=== PATIENT | male | born 1955 | race Caucasian/White ===

== ENCOUNTER 2019-12-15 11:23 | Outpatient (CLI) | payer MEDICARE, SELFPAY ==
--- NOTE | ~2019-12-15 | US_ITS ---
EXAMINATION: US carotid duplex BI DATE: 12/15/2019 13:58 INDICATION: Carotid bruit. Hypertension. TECHNIQUE: Grayscale, color Doppler, and pulsed Doppler images of the cervical carotid arteries were obtained. The degree of vessel stenosis is placed in one of the following categories: normal, <50%, 5 0-69%, >=70% but less than near-occlusion, near-occlusion, or total occlusion. Note that percent sten osis relative to normal distal artery lumen diameter is indirectly measured from velocity measurement s as described by Rafael, et al. Radiology 2003; 229:340-346. COMPARISON: None. FINDINGS: RIGHT: The right common carotid artery (CCA) peak systolic velocity (PSV) is 132 cm/s. The right internal ca rotid artery (ICA) PSV is 123 cm/s. The right ICA end-diastolic velocity (EDV) is 29 cm/s. The right ICA/CCA PSV ratio is 0.9. Grayscale and color Doppler images yield an estimate of <50% diameter reduc tion from plaque in the ICA. The external carotid artery (ECA) PSV is 51 cm/s. There is antegrade kamilah w in the right vertebral artery. LEFT: The left CCA PSV is 127 cm/s. The left ICA PSV is 112 cm/s. The left ICA EDV is 10 cm/s. The left ICA /CCA PSV ratio is 0.9. Grayscale and color Doppler images yield an estimate of <50% diameter reductio n from plaque in the ICA. The ECA PSV is 104 cm/s. There is antegrade flow in the left vertebral jacinto ry. IMPRESSION: 1. <50% stenosis in the right internal carotid artery. 2. <50% stenosis in the left internal carotid artery. Reviewed, dictated and finalized at location A.
--- NOTE | 2019-12-15 11:50 | ECG_ITS ---
Measurements Intervals [place] Rate: 62 P: 63 NM: 192 QRS: 38 QRSD: 92 T: 52 QT: 389 QTc: 395 Interpretive Statements SINUS RHYTHM NORMAL ECG Electronically Signed On 12-15-2019 12:07:46 CDT by Matheus Castro D.O.
--- NOTE | 2019-12-15 11:55 | ECHO_ITS ---
Patient Info Name: Jason Krishnamurthy Age: 63 years : 1955 Gender: Male Ht: 78 in Wt: 297 lbs BSA: 2.76 m2 HR: 65 bpm BP: 151 / 78 mmHg Heart Rhythm: Sinus Rhythm Technical Quality: Fair Exam Date: 12/15/2019 12:26 PM Exam Location: [facility] Patient Status: Outpatient Admit Date: 12/15/2019 Staff Ordering Physician: Jo Kinney MD Diesel Maintenance Electrician: Katerina Duncan RDCS Attending Provider: Jo Kinney MD Referring Physician: Nirmal WADSWORTH; Exam Type: CA echo dop color flow w con Study Info Indications I10 - Essential (primary) hypertension Complete two-dimensional, color flow and Doppler transthoracic echocardiogram is performed with contrast to opacify the left ventricle and to improve the deliniation of the left ventricle endocardial borders. Strain analysis performed. Contrast/Agitated Saline Contrast/Ag. Saline: Definity Amount: 4.00 ml New IV Access: Antecubital Space and Right Site Condition: No extravasation, Site dressing applied and IV removed History/Risk Factors Hypertension: Yes Dyslipidemia: No Congenital Heart Disease (CHD): No Peripheral Arterial Disease (PAD): No Myocardial Infarction (IL): No Chronic Lung Disease: No Obesity: Yes Renal Disease: No Coronary Artery Disease (CAD) No Congestive Heart Failure (CHF): No Cardiomyopathy/LV Systolic Dysfunction: No Diabetes Mellitus: No COPD: No Tobacco Use: Never Cerebrovascular Disease: No Family History: Diabetes Mellitus, Coronary Artery Disease Deep Vein Thrombosis (DVT): None Dialysis: None Frailty Scale (CSHA): 1: Very Fit Cardiac Arrest: No Summary 1. Left ventricular chamber dimension is normal. 2. Definity contrast administered improved wall motion interpretation. 3. Left ventricular systolic function is normal, estimated at 60-65%. 4. There is mildly increased left ventricular wall thickness. 5. The left ventricular diastolic function is abnormal. 6. E/e' 11 is mildly elevated. 7. Global longitudinal strain is abnormal at -14.2%. Left Ventricle E/e' 11 is mildly elevated. Global longitudinal strain is abnormal at -14.2%. Definity contrast administered improved wall motion interpretation. Left ventricular chamber dimension is normal. Left ventricular systolic function is normal, estimated at 60-65%. There is mildly increased left ventricular wall thickness. The left ventricular diastolic function is abnormal. Right Ventricle Right ventricular chamber dimension is normal. Right ventricular systolic function is normal. Left Atria Left atrial chamber dimension is normal. Right Atria Right atrial chamber dimension is normal. Aortic Valve The aortic valve is trileaflet. There is no aortic valve stenosis. There is no aortic valve regurgitation. Pulmonic Valve There is no pulmonic regurgitation. Mitral Valve There is no mitral valve stenosis. There is no mitral valve regurgitation. Tricuspid Valve There is no tricuspid valve regurgitation. Pericardium/Pleural There is no pericardial effusion. Inferior Vena Cava Normal inferior vena cava with >50% collapse upon inspiration consistent with normal right atrial pressure, 5 mmHg. Aorta The aortic root size at the sinus of Valsalva is normal. Left Ventricular Outflow Tract
== END 2019-12-15 11:24 | disposition home or self-care (01) ==
PROVIDERS: PCP Internal Medicine; Visit Provider Internal Medicine
DX: R09.89 Other specified symptoms and signs involving the circulatory and respiratory systems (principal); I10 Essential (primary) hypertension
CPT/HCPCS: 93005; 93880; C8929

== ENCOUNTER 2020-03-09 07:02 | Outpatient (CLI) | payer MEDICARE, SELFPAY ==
--- NOTE | ~2020-03-09 | MR_ITS ---
EXAMINATION: MR brain/brain stem wo/w con EXAM DATE: 03/09/2020 11:07 INDICATION: Tinnitus hearing loss bilaterally, R/O tumor. TECHNIQUE: Multi-sequential, multiplanar MR images of the brain, brainstem, internal auditory canals were obtained without contrast. Whole brain sagittal T1, axial diffusion, gradient echo (T2*), T1, T 2, FLAIR sequences obtained. High resolution coronal 3-D FIESTA, coronal T1 FSE, axial T1 FSPGR of t he internal auditory canals. Patient was then injected with 20 cc Multihance contrast intravenously. Postcontrast axial and coronal T1 weighted whole brain, axial and coronal high resolution T1 IAC seq uences obtained. There is no prior study for comparison. FINDINGS: No evidence of mastoid or middle ear opacification. The 7th/8th cranial nerve complexes a re symmetric, normal in course and caliber. No cerebellopontine angle masses. Posterior fossa unrem arkable. Pineal gland measures 9 mm in greatest dimension with 2 small cystic regions. Most likely benign and not clinically significant but consider one-year follow-up MR in one year. There are no areas of restricted diffusion to suggest acute infarction. There is no acute hemorrhage seen on the T2*, a hemosiderin sensitive sequence. The ventricles are normal in size. There are no extra-axial collections. Flow voids are seen in the cerebral arteries on the T2-weighted sequences consistent with their expected patency. The orbits are unremarkable. Soft tissue is unremarkable. There are no areas of abnormal enhancement on the postcontrast images. IMPRESSION: 2 small cystic regions in the pineal, likely benign. Consider one-year follow-up MR. Reviewed, dictated and finalized at location B. DRY OPERATOR FINISHING IMPRESSION: 2 small cystic regions in the pineal, likely benign. Consider one- year follow-up MR.
[2020-03-09 07:20] LABS: Estimated Glomerular Filt Rate > 60
== END 2020-03-09 07:03 | disposition home or self-care (01) ==
LOC: CHSIMG 07:04
PROVIDERS: PCP Internal Medicine; Visit Provider Internal Medicine
DX: H93.19 Tinnitus, unspecified ear (principal)
CPT/HCPCS: 70553; A9577

== ENCOUNTER → 2020-06-18 01:17 | Outpatient (CLI) | payer MEDICARE, SELFPAY ==
[2020-06-19 00:07] LABS: SARS-CoV-2 RNA PCR Negative
== END ==
PROVIDERS: PCP Internal Medicine; Visit Provider Internal Medicine Gastroenterology
DX: Z01.812 Encounter for preprocedural laboratory examination (principal); Z20.822 Contact with and (suspected) exposure to COVID-19
CPT/HCPCS: C9803; U0003; U0005

== ENCOUNTER 2020-06-22 02:05 | Day surgery (SDC) | payer MEDICARE, SELFPAY ==
[2020-06-10 14:46] VITALS: BMI 37.6
[2020-06-22 12:25] VITALS: BP 151/88; PULSE 89; RESP 18; TEMP 36.2; O2SAT 96; BMI 36.8
--- NOTE | 2020-06-22 12:34 | P.PNAN_ITS ---
Anes - Initial Pre Proc Eval Procedure: Operation Date: 06/22/20 13:30 Proposed Procedures p Esophagogastroduodenoscopy - Varghese Keith MD Date/Time: 06/22/20 12:34 Surgeon: Varghese Keith MD Pre Op Diagnosis: GERD Patient Data Age: 64 Gender: M Height: 6 ft 5 in Weight: 141.1 kg Last Vital Signs Temp 97.2 F L 06/22/20 12:25 Pulse 89 06/22/20 12:25 Resp 18 06/22/20 12:25 BP 151/88 H 06/22/20 12:25 Pulse Ox 96 06/22/20 12:25 Allergies Allergy/AdvReac Type Severity Reaction Status Date / Time No Known Allergies Allergy Unverified 06/22/20 12:24 Home Medications Medication Instructions Recorded Confirmed Type aspirin 81 mg tablet,delayed 81 mg PO DAILY 02/29/20 06/10/20 History release cyclobenzaprine 10 mg tablet 10 mg PO TID PRN 02/29/20 06/10/20 History omeprazole magnesium 20 mg 20 mg PO DAILY 02/29/20 06/10/20 History tablet,delayed release amlodipine 10 mg PO DAILY 06/10/20 06/10/20 History pravastatin 40 mg PO DAILY 06/10/20 06/10/20 History Patient hx anesthesia problems: none Family hx anesthesia problems: none [facility] Past Medical History Medical History (Updated 02/29/20 @ 11:18 by YAYO LewisN-C) Encounter for screening colonoscopy HTN (hypertension) Hyperlipidemia Low back pain Obesity (BMI 30-39.9) Social History Social History (Updated 02/29/20 @ 10:52 by Rosalinda Anderson CMA) Smoking status: Never smoker Alcohol intake: current Substance use: never Substance use type: does not use Spiritual care concerns: No Anes - Eval Final PreProcedure Day of Procedure 06/22/20 12:34 Patient weight: obese Heart: regular rate and rhythm Lungs: clear to auscultation Airway: Mallampati scale class III Neurological: alert and oriented Last oral intake: >/= 8 hours ASA classification: III Emergent: no Anesthetic plan: proceed Anesthesia type and monitoring: general GIVS and standard monitoring Informed Consent: The patient's anesthetic plan and its attendant risks and benefits were discussed with the patient/family/POA. Questions were solicited and answers provided to the satisfaction of the patient/family/POA.
[2020-06-22] MEDS: LACTATED RINGERS 1,000 ML 150 ML IV CONT (12:37)
--- NOTE | 2020-06-22 13:07 | PM.HPGS ---
History of Present Illness History of Present Illness Consent: Risks, benefits, and alternatives have been discussed and questions answered. Patient agrees to proceed with procedure. Chief complaint: GERD Narrative: Jason Krishnamurthy is a 64 year old male with gerd on prilosec but sometimes using tums, remote history of Sue's Review of Systems Constitutional: Constitutional: Denies headache(s) and Denies weakness Eyes: Eyes: Denies blurry vision ENT: Reports Normal hearing present, Denies headache(s) and Denies neck pain Cardiovascular: Cardiovascular: Denies chest pain and Denies dyspnea Respiratory: Respiratory: Denies dyspnea Gastrointestinal: Gastrointestinal: Reports no additional gastrointestinal complaints Genitourinary: Genitourinary: Denies dysuria Musculoskeletal: Musculoskeletal: Denies neck pain Integumentary/Breasts: Skin/Breast: Denies dry skin Neurologic: Reports Normal hearing present, Denies headache(s) and Denies weakness Psychiatric: Psychiatric: Denies anxiety Endocrine: Endocrine: Denies change in body appearance Hematologic/Lymphatic: Hematologic/Lymphatic: Denies easy bleeding Allergic/Immunologic: Allergic/Immunologic: Denies urticaria [facility] Past Medical History Medical History (Updated 06/22/20 @ 13:08 by Varghese Keith MD) Encounter for screening colonoscopy GERD (gastroesophageal reflux disease) HTN (hypertension) Hyperlipidemia Low back pain Obesity (BMI 30-39.9) Social History Social History (Updated 02/29/20 @ 10:52 by Rosalinda Anderson CMA) Smoking status: Never smoker Alcohol intake: current Substance use: never Substance use type: does not use Spiritual care concerns: No Meds Home Medications and Allergies Home Medications Medication Instructions Recorded Confirmed Type aspirin 81 mg tablet,delayed 81 mg PO DAILY 02/29/20 06/10/20 History release cyclobenzaprine 10 mg tablet 10 mg PO TID PRN 02/29/20 06/10/20 History omeprazole magnesium 20 mg 20 mg PO DAILY 02/29/20 06/10/20 History tablet,delayed release amlodipine 10 mg PO DAILY 06/10/20 06/10/20 History pravastatin 40 mg PO DAILY 06/10/20 06/10/20 History Allergies Allergy/AdvReac Type Severity Reaction Status Date / Time No Known Allergies Allergy Unverified 06/22/20 12:24 Vital Signs Vital Signs - 24 hr 06/22/20 12:25 Temperature 97.2 F L Pulse Rate 89 Respiratory Rate 18 Blood Pressure 151/88 H Pulse Oximetry 96 Exam Const: General: comfortable and no acute distress HENMT: General nose exam: Normal nares present Eyes: General: appearance normal, both eyes and all related structures Neck: Neck: no JVD Resp: Auscultation: clear to auscultation bilaterally Cardio: Rate: regular rate Rhythm: regular rhythm GI: Inspection: non-distended GI Palp: Yes Soft to palpation Skin: General skin exam: normal color Neuro: General: gait normal Speech: normal speech Extrem: General: normal to inspection Psych: Mental Status: mental status grossly normal Assessment and Plan Assessment and plan (1) GERD (gastroesophageal reflux disease): Code(s): K21.9 - Gastro-esophageal reflux disease without esophagitis Status: Acute Assessment and Plan: egd, already on ppi
[2020-06-22 13:24] VITALS: BP 126/79; PULSE 72; RESP 20; O2SAT 97
[2020-06-22 13:34] VITALS: BP 113/76; PULSE 65; RESP 18; O2SAT 99
[2020-06-22 13:44] VITALS: BP 125/75; PULSE 64; RESP 17; O2SAT 100
== END 2020-06-22 14:05 | disposition home or self-care (01) ==
PROVIDERS: PCP Internal Medicine; Visit Provider Internal Medicine Gastroenterology
PROC: 0DJ08ZZ Inspection of Upper Intestinal Tract, Via Natural or Artificial Opening Endoscopic (ICD-10-PCS; CPT 43235; principal; 2020-06-22 13:30)
DX: K21.9 Gastro-esophageal reflux disease without esophagitis (principal); I10 Essential (primary) hypertension; E78.5 Hyperlipidemia, unspecified; Z79.82 Long term (current) use of aspirin; E66.9 Obesity, unspecified; Z68.36 Body mass index [BMI] 36.0-36.9, adult
CPT/HCPCS: 43239; 88305; C9803; J2704; J7120; U0003; U0005

== ENCOUNTER 2020-11-14 12:53 | Emergency (ER) | payer MEDICARE, SELFPAY ==
--- NOTE | ~2020-11-14 | XR_ITS ---
EXAMINATION: XR chest 2V DATE: 11/14/2020 13:34 INDICATION: Shortness of breath. Lower limb swelling. TECHNIQUE: PA and lateral views of the chest were obtained. COMPARISON: Chest radiograph dated 04/12/2011 FINDINGS: Calcified right lower lobe nodules consistent with old granulomatous disease. No focal airspace opaci ties, pulmonary edema, pleural effusion or pneumothorax. The cardiomediastinal silhouette is normal. There are bridging osteophytes at multiple levels in the spine, consistent with diffuse idiopathic sk eletal hyperostosis (DISH). IMPRESSION: 1. No acute cardiopulmonary disease. Reviewed, dictated and finalized at location A.
[2020-11-14 13:15] VITALS: BP 171/94; PULSE 72; RESP 18; TEMP 36.3; O2SAT 99
--- NOTE | 2020-11-14 13:19 | ECG_ITS ---
Measurements Intervals [place] Rate: 61 P: 20 OR: 186 QRS: -5 QRSD: 101 T: 17 QT: 414 QTc: 418 Interpretive Statements SINUS RHYTHM EARLY PRECORDIAL R/S TRANSITION BASELINE WANDER- V2 BORDERLINE ECG Electronically Signed On 11-15-2020 7:12:21 CDT by Matheus Castro D.O.
[2020-11-14] MEDS: ONDANSETRON INJ 4 MG/2 ML VIAL IV PUSH (13:39)
[2020-11-14 14:13] LABS: Basophils Absolute Auto 0.04 K/mm3 (0.00-0.10); Basophils Percent Auto 0.8 % (0.0-1.0); Eosinophils Absolute Auto 0.13 K/mm3 (0.02-0.50); Eosinophils Percent Auto 2.6 % (1.0-6.0); Hemoglobin 12.6 g/dL (12.4-15.3); Immature Granulocyte Absolute 0.01 K/mm3 (0.00-0.00); Immature Granulocyte Percent A 0.2 % (0.0-0.0); Lymphocytes Absolute Auto 1.68 K/mm3 (1.10-4.50); Lymphocytes Percent Auto 33.1 % (18.0-42.0); Mean Corpuscular HGB Conc 34.1 g/dL (32.0-36.0); Mean Corpuscular Hemoglobin 28.8 pg (27.0-31.0); Mean Corpuscular Volume 84.7 fL (78.0-102.0); Mean Platelet Volume 10.8 fl (8.7-11.0); Monocytes Absolute Auto 0.43 K/mm3 (0.10-0.90); Monocytes Percent Auto 8.5 % (2.0-11.0); Neutrophils Absolute Auto 2.8 K/mm3 (1.7-7.2); Neutrophils Percent Auto 54.8 % (50.0-70.0); Platelet Count Result 160 K/mm3 (150-420); Red Blood Count 4.37 M/mm3 (4.70-6.10); Red Cell Distribution Width 13.2 % (11.6-14.4); White Blood Count 5.1 K/mm3 (4.8-10.8)
[2020-11-14 14:17] LABS: Add Urine Microscopic? NO; Appearance Urine Clear (Clear); Bilirubin Urine Negative (Negative); Blood Urine Negative (Negative); Color Urine Light Yellow (Yellow); Glucose Urine UA Negative (Negative); Ketones Urine Negative (Negative); Leukocyte Esterase Ur Negative (Negative); Nitrate Urine Negative (Negative); Protein Urine Negative (Negative); Urobilinogen Urine 0.2 mg/dL (0.2-1.0)
[2020-11-14 14:19] VITALS: BP 126/64; PULSE 65; RESP 18; O2SAT 99
[2020-11-14 14:24] LABS: D Dimer 0.34 mg/L (0.19-0.50); Partial Thromboplastin Time 25.6 SEC (23.90-30.70); Prothrombin Time 10.5 Seconds (9.50-12.10)
[2020-11-14 14:27] LABS: Lactic Acid Reflex 0.7 mmol/L (0.4-2.0)
[2020-11-14 14:33] LABS: SARS-CoV-2 Ag Negative (Negative)
[2020-11-14 14:35] LABS: Alanine Aminotransferase 33 U/L (16-63); Albumin Level 3.7 g/dL (3.4-5.0); Alkaline Phosphatase 54 U/L (46-116); Anion Gap 10 mmol/L (8-16); Aspartate Amino Transferase 23 U/L (15-37); Bilirubin,Total 0.8 mg/dL (0.00-1.00); Blood Urea Nitrogen 14 mg/dL (7-18); Calcium 8.7 mg/dL (8.5-10.1); Carbon Dioxide 26 mmol/L (21-32); Chloride 104 mmol/L (98-108); Estimated CRCL calculation 131 ml/min; Estimated Glomerular Filt Rate > 60; Glucose 91 mg/dL (70-99); Osmolality Calculated 290 mOsm/kg (285-295); Potassium 3.7 mmol/L (3.5-5.1); Sodium 140 mmol/L (136-145); Total Protein 7.2 g/dL (6.4-8.2)
[2020-11-14 14:36] LABS: Magnesium 1.7 mg/dL (1.8-2.4); Troponin I 4.2 ng/L (0.00-60.4)
[2020-11-14 14:59] LABS: NT Pro B Type Natriuretic Pept 135 pg/mL (0-125)
--- NOTE | 2020-11-14 15:09 | ED.WEAKNESS ---
HPI - Weakness General Chief complaint: Weakness Stated complaint: left side tingling sob weak Source: patient and family Mode of arrival: ambulatory Limitations: no limitations History of Present Illness HPI Narrative: this is a 64-year-old male that presents with some generalized weakness it started earlier today with no focal weakness no fever chills does have some mild shortness of breath mild nausea with no nasal stuffiness no fever chills no diarrhea constipation no chest pain no abdominal pain no dysuria. The patient has a history of hypertension and hyperlipidemia initially blood pressure 171/94 with no headache no blurry vision. Complaint: generalized weakness Onset (ago): hour(s) Duration: intermittent Location: generalized Migration: none Severity: mild Related Data Home Medications Medication Instructions Recorded Confirmed amlodipine 10 mg PO DAILY 06/10/20 11/14/20 Allergies Allergy/AdvReac Type Severity Reaction Status Date / Time No Known Allergies Allergy Unverified 06/22/20 12:24 Review of Systems Review of Systems: All systems reviewed & are unremarkable except as noted in HPI and below PMFSH Past Medical History Medical History Encounter for screening colonoscopy GERD (gastroesophageal reflux disease) HTN (hypertension) Hyperlipidemia Low back pain Obesity (BMI 30-39.9) Social History Social History Smoking status: Never smoker Alcohol intake: current Substance use: never Substance use type: does not use Spiritual care concerns: No Exam Const: General: no acute distress Orientation/consciousness: patient oriented x3 HENMT: Head: normal to inspection Eyes: Conjunctivae: conjunctivae normal Pupils: Equal, round and reactive pupils present Neck: Neck: normal visual inspection Chest: Chest palpation & inspection: normal inspection of the chest Resp: Effort & Inspection: normal respiratory effort Cardio: Rate: regular rate Rhythm: regular rhythm GI: GI Palp: Yes Soft to palpation Skin: General skin exam: normal color Neuro: General: patient oriented x3, moves all extremities, no meningeal signs, no focal motor deficits and CN's II-XI intact bilaterally Cranial nerves: Yes Nystagmus not present Extrem: General: normal to inspection and no pedal edema Psych: Mental Status: mental status grossly normal Affect: normal affect Course Course Emergency Course: Patient received IV fluids, and Zofran blood pressure currently stable at 120 6/64 the patient feels better labs and x-ray reviewed with patient and his and advised that he can go home rest drink plenty of fluids Tylenol or Motrin for pain or achiness and follow up with his primary care physician within a week. Vital Signs Vital signs: Vital Signs Temperature 36.3 C L 11/14/20 13:15 Pulse Rate 72 11/14/20 13:15 Respiratory Rate 18 11/14/20 13:15 Blood Pressure 171/94 H 11/14/20 13:15 Pulse Oximetry 99 11/14/20 13:15 Temperature 36.3 C L 11/14/20 13:15 Pulse Rate 65 11/14/20 14:19 Respiratory Rate 18 11/14/20 14:19 Blood Pressure 126/64 11/14/20 14:19 Pulse Oximetry 99 11/14/20 14:19 MDM - Weakness Lab Data Result diagrams: 11/14/20 14:00 11/14/20 14:00 Labs: Lab Results 11/14/20 11/14/20 11/14/20 Range/Units 14:00 14:00 14:00 WBC 5.1 (4.8-10.8) K/mm3 RBC 4.37 L (4.70-6.10) M/mm3 Hgb 12.6 (12.4-15.3) g/dL Hct 37.0 (37.0-46.0) % MCV 84.7 (78.0-102.0) fL MCH 28.8 (27.0-31.0) pg MCHC 34.1 (32.0-36.0) g/dL RDW 13.2 (11.6-14.4) % Plt Count 160 (150-420) K/mm3 MPV 10.8 (8.7-11.0) fl Immature Gran % (Auto) 0.2 H (0.0-0.0) % Neut % (Auto) 54.8 (50.0-70.0) % Lymph % (Auto) 33.1 (18.0-42.0) % Potter % (Auto) 8.5 (2.0-11.0) % Eos % (Auto) 2.6 (
[2020-11-14 15:31] VITALS: BP 120/69; PULSE 58; RESP 16; O2SAT 100
== END 2020-11-14 15:33 | disposition home or self-care (01) ==
PROVIDERS: Emergency Provider Emergency Medicine; PCP Internal Medicine
DX: R53.1 Weakness (principal); Z20.822 Contact with and (suspected) exposure to COVID-19; R06.02 Shortness of breath; K21.9 Gastro-esophageal reflux disease without esophagitis; I10 Essential (primary) hypertension; E78.5 Hyperlipidemia, unspecified
CPT/HCPCS: 36415; 71046; 80053; 81003; 83605; 83735; 83880; 84443; 84484; 85025; 85380; 85610; 85730; 87040; 87426; 93005; 96372; 99283; 99284; C9803; J2405

== ENCOUNTER 2020-11-21 16:55 | Outpatient (CLI) | payer MEDICARE, SELFPAY ==
[2020-11-21 18:18] LABS: SARS-CoV-2 RNA PCR Positive (Negative)
== END 2020-11-21 16:56 | disposition home or self-care (01) ==
LOC: CHSLAB 16:59
PROVIDERS: PCP Internal Medicine; Visit Provider Internal Medicine
DX: U07.1 COVID-19 (principal); J06.9 Acute upper respiratory infection, unspecified
CPT/HCPCS: C9803; U0003; U0005

== ENCOUNTER 2020-12-07 07:30 | Outpatient (CLI) | payer MEDICARE, SELFPAY ==
[2020-12-07 08:35] LABS: Alanine Aminotransferase 34 U/L (16-63); Albumin Level 3.9 g/dL (3.4-5.0); Alkaline Phosphatase 59 U/L (46-116); Anion Gap 9 mmol/L (8-16); Aspartate Amino Transferase 20 U/L (15-37); Bilirubin,Total 0.7 mg/dL (0.00-1.00); Blood Urea Nitrogen 20 mg/dL (7-18); Calcium 8.7 mg/dL (8.5-10.1); Carbon Dioxide 27 mmol/L (21-32); Chloride 108 mmol/L (98-108); Creatine Kinase 78 U/L (39-308); Estimated Glomerular Filt Rate > 60; Glucose 111 mg/dL (70-99); Osmolality Calculated 301 mOsm/kg (285-295); Potassium 4.1 mmol/L (3.5-5.1); Sodium 144 mmol/L (136-145); Total Protein 6.9 g/dL (6.4-8.2)
== END 2020-12-07 07:31 | disposition home or self-care (01) ==
LOC: CHSLAB 07:33
PROVIDERS: PCP Internal Medicine; Visit Provider Internal Medicine
DX: M60.9 Myositis, unspecified (principal); R94.5 Abnormal results of liver function studies
CPT/HCPCS: 36415; 80053; 82085; 82550

== ENCOUNTER 2021-08-04 00:15 | Day surgery (SDC) | payer MEDICARE, SELFPAY ==
[2021-07-24 09:51] VITALS: BMI 37.0
[2021-08-04 09:18] VITALS: BP 162/82; PULSE 85; RESP 19; TEMP 36.8; O2SAT 97
[2021-08-04] MEDS: LACTATED RINGERS 1,000 ML 150 ML IV CONT (09:29)
--- NOTE | 2021-08-04 09:50 | PM.HPGS ---
History of Present Illness History of Present Illness Consent: Risks, benefits, and alternatives have been discussed and questions answered. Patient agrees to proceed with procedure. Chief complaint: neoplasm screening Narrative: Jason Krishnamurthy is a 65 year old male here for screening colonoscopy, last one 2011 Review of Systems Constitutional: Constitutional: Denies headache(s) and Denies weakness Eyes: Eyes: Denies blurry vision ENT: Reports Normal hearing present, Denies headache(s) and Denies neck pain Cardiovascular: Cardiovascular: Denies chest pain and Denies dyspnea Respiratory: Respiratory: Denies dyspnea Gastrointestinal: Gastrointestinal: Reports no additional gastrointestinal complaints Genitourinary: Genitourinary: Denies dysuria Musculoskeletal: Musculoskeletal: Denies neck pain Integumentary/Breasts: Skin/Breast: Denies dry skin Neurologic: Reports Normal hearing present, Denies headache(s) and Denies weakness Psychiatric: Psychiatric: Denies anxiety Endocrine: Endocrine: Denies change in body appearance Hematologic/Lymphatic: Hematologic/Lymphatic: Denies easy bleeding Allergic/Immunologic: Allergic/Immunologic: Denies urticaria PMFSH Past Medical History Medical History Encounter for screening colonoscopy GERD (gastroesophageal reflux disease) HTN (hypertension) Hyperlipidemia Low back pain Obesity (BMI 30-39.9) Social History Social History Smoking status: Never smoker Alcohol intake: current Alcohol use details: occasional Substance use: never Substance use type: does not use Living arrangements: with family Spiritual care concerns: No Meds Home Medications and Allergies Home Medications Medication Instructions Recorded Confirmed Type amlodipine 10 mg tablet 10 mg PO DAILY 06/10/20 08/04/21 History losartan 50 mg-hydrochlorothiazide 1 tablet PO DAILY 07/24/21 08/04/21 History 12.5 mg tablet omeprazole 40 mg capsule,delayed 40 mg PO DAILY 07/24/21 08/04/21 History release Allergies Allergy/AdvReac Type Severity Reaction Status Date / Time No Known Allergies Allergy Verified 08/04/21 09:15 Vital Signs Vital Signs - 24 hr 08/04/21 09:18 Temperature 98.2 F Pulse Rate 85 Respiratory Rate 19 Blood Pressure 162/82 H Pulse Oximetry 97 Oxygen Delivery Room Air Exam Const: General: comfortable and no acute distress HENMT: General nose exam: Normal nares present Eyes: General: appearance normal, both eyes and all related structures Neck: Neck: no JVD Resp: Auscultation: clear to auscultation bilaterally Cardio: Rate: regular rate Rhythm: regular rhythm GI: Inspection: non-distended GI Palp: Yes Soft to palpation Skin: General skin exam: normal color Neuro: General: gait normal Speech: normal speech Extrem: General: normal to inspection Psych: Mental Status: mental status grossly normal Assessment and Plan Assessment and plan (1) Encounter for screening colonoscopy: Code(s): Z12.11 - Encounter for screening for malignant neoplasm of colon Status: Acute Assessment and Plan: colonoscopy
--- NOTE | 2021-08-04 09:51 | P.PNAN_ITS ---
Anes - Initial Pre Proc Eval Procedure: Operation Date: 08/04/21 10:30 Proposed Procedures p Screening Colonoscopy - Varghese Keith MD Date/Time: 08/04/21 09:51 Surgeon: Varghese Keith MD Pre Op Diagnosis: neoplasm screening Patient Data Age: 65 Gender: M Height: 1.98 m Weight: 146 kg Last Vital Signs Temp 98.2 F 08/04/21 09:18 Pulse 85 08/04/21 09:18 Resp 19 08/04/21 09:18 BP 162/82 H 08/04/21 09:18 Pulse Ox 97 08/04/21 09:18 O2 Del Method Room Air 08/04/21 09:18 Allergies Allergy/AdvReac Type Severity Reaction Status Date / Time No Known Allergies Allergy Verified 08/04/21 09:15 Home Medications Medication Instructions Recorded Confirmed Type amlodipine 10 mg tablet 10 mg PO DAILY 06/10/20 08/04/21 History losartan 50 mg-hydrochlorothiazide 1 tablet PO DAILY 07/24/21 08/04/21 History 12.5 mg tablet omeprazole 40 mg capsule,delayed 40 mg PO DAILY 07/24/21 08/04/21 History release Patient hx anesthesia problems: none Family hx anesthesia problems: none Results Review: All pre-operative results and documents have been reviewed as part of the pre-operative evaluation. [facility], [facility] Past Medical History Medical History Encounter for screening colonoscopy GERD (gastroesophageal reflux disease) HTN (hypertension) Hyperlipidemia Low back pain Obesity (BMI 30-39.9) Social History Social History Smoking status: Never smoker Alcohol intake: current Alcohol use details: occasional Substance use: never Substance use type: does not use Living arrangements: with family Spiritual care concerns: No Anes - Eval Final PreProcedure Day of Procedure 08/04/21 09:51 Patient weight: obese Heart: regular rate and rhythm Lungs: clear to auscultation Airway: Mallampati scale class II Neurological: alert and oriented Last oral intake: >/= 8 hours ASA classification: III Emergent: no Anesthetic plan: proceed Anesthesia type and monitoring: general and standard monitoring Results Review: All pre-operative results and documents have been reviewed as part of the pre- operative evaluation. Informed Consent: The patient's anesthetic plan and its attendant risks and benefits were discussed with the patient/family/POA. Questions were solicited and answers provided to the satisfaction of the patient/family/POA.
[2021-08-04 10:08] VITALS: BP 122/74; PULSE 71; RESP 18; O2SAT 97
[2021-08-04 10:18] VITALS: BP 130/85; PULSE 67; RESP 15; O2SAT 98
[2021-08-04 10:27] VITALS: BP 128/84; PULSE 66; RESP 17; O2SAT 100
== END 2021-08-04 10:31 | disposition home or self-care (01) ==
PROVIDERS: PCP Internal Medicine; Visit Provider Internal Medicine Gastroenterology
PROC: 0DJD8ZZ Inspection of Lower Intestinal Tract, Via Natural or Artificial Opening Endoscopic (ICD-10-PCS; CPT 45378; principal; 2021-08-04 10:30)
DX: Z12.11 Encounter for screening for malignant neoplasm of colon (principal); D12.3 Benign neoplasm of transverse colon; K21.9 Gastro-esophageal reflux disease without esophagitis; K64.8 Other hemorrhoids; I10 Essential (primary) hypertension; E78.5 Hyperlipidemia, unspecified; E66.9 Obesity, unspecified; M54.50 Low back pain, unspecified
CPT/HCPCS: 45385; 88305; J2704; J7120

== ENCOUNTER 2021-09-02 14:42 | Emergency (ER) | payer MEDICARE, SELFPAY ==
--- NOTE | ~2021-09-02 | CT_ITS ---
EXAMINATION: CT abdomen pelvis w con DATE: 09/02/2021 16:13 INDICATION: LEFT SIDE ABDOMINAL BLOATING AFTER EATING TECHNIQUE: Computed tomography (CT) of the abdomen and pelvis was performed with 100 mL Omnipaque-300 intravenous contrast. Automated exposure control and iterative reconstruction technique were employe d. The dose-length product was 1689.27 mGy-cm. COMPARISON: None. FINDINGS: Lower thorax: Mild coronary artery calcification. Liver: Fatty infiltration. Biliary/Gallbladder: Partially contracted gallbladder. No bile duct dilation. Pancreas: Pancreatic tail is atrophic. Minimal inflammatory change at the pancreatic head/body. Spleen: Normal. Adrenals:No mass. Kidneys: Nonobstructive punctate calculi. No mass or hydronephrosis. GI tract: No small or large bowel dilation. Appendix not confidently visualized. Short segment area o f narrowing in the proximal sigmoid colon, without obstruction. Mesentery/Peritoneum: No ascites, mass, or free air. Retroperitoneum: No mass. Atherosclerotic abdominal aortic and/or arterial calcifications. Pelvis: Pelvic organs are within normal limits. Soft Tissues: Soft tissues and body wall unremarkable. Bones: No acute osseous finding. Uncomplicated appearing lumbar fusion. IMPRESSION: Steatosis. Mild inflammatory change at the pancreatic head/body, may reflect pancreatitis in the appr opriate clinical context. Appendix not visualized. Short segment proximal sigmoid narrowing, consider nonemergent, outpatient referral for colonoscopy to exclude a mass if not recently performed. Reviewed, dictated and finalized at location K. IMPRESSION: Steatosis. Mild inflammatory change at the pancreatic head/body, may reflect pa ncreatitis in the appropriate clinical context. Appendix not visualized. Short segment proximal sigmoid narrowing, consider nonemergent, outpatient referral f or colonoscopy to exclude a mass if not recently performed.
[2021-09-02 14:53] VITALS: BP 150/79; PULSE 92; RESP 18; TEMP 36.9; O2SAT 97
[2021-09-02 14:54] VITALS: BP 150/79; PULSE 93; RESP 18; TEMP 36.9; O2SAT 97
--- NOTE | 2021-09-02 15:01 | ED.ABDPAIN ---
HPI - Abdominal Pain General Chief Complaint: Abdominal Pain Stated Complaint: severe stomach pains Time Seen by Provider: 09/02/21 15:02 History of Present Illness HPI narrative: 65-year-old male patient is here with complaints of abdominal pain in the left lower abdomen that started approximately an hour ago after he ate salad and milk. Patient states that he has had recurrent episodes of similar pain in the past 2 and half weeks especially after eating a meal. Patient describes this pain as bloating and severe cramp located to the left abdomen with no associated nausea or vomiting or diarrhea. He also states that his last bowel movement was 2 days ago and that is apparently normal for him. He has also noticed some black tarry stools off and on for the last 2 and a half weeks or so. He reports no bright red blood in stools. He denies any diarrhea but states that the stools are rather loose. Prior abdominal surgery includes a surgical repair of hiatal hernia in the remote past. Patient also has had a colonoscopy examination done about a month ago and had a few polyps that were removed. He denies any known history of cancer of the colon. Patient takes omeprazole. States that he was using a lot of ibuprofen and had significant epigastric pain up until about 6 months ago when he had an upper endoscopy done which showed no ulcers. He is denying any pain at this time in the upper abdomen. Patient denies any chest pain or shortness of breath. He denies any pain radiating into the back or into the legs. Patient is not on any blood thinners. He has recently been started on amlodipine and losartan. He denies smoking and rare alcohol use. 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 Patient has also had contact dermatitis with poison keila on his chest and axillary areas for about a week and he is using some local cream with very little relief. He does complain about the rash hurting and itching. Related Data Home Medications Medication Instructions Recorded Confirmed amlodipine 10 mg tablet 10 mg PO DAILY 06/10/20 09/02/21 losartan 50 mg-hydrochlorothiazide 1 tablet PO DAILY 07/24/21 09/02/21 12.5 mg tablet omeprazole 40 mg capsule,delayed 40 mg PO DAILY 07/24/21 09/02/21 release Allergies Allergy/AdvReac Type Severity Reaction Status Date / Time No Known Allergies Allergy Verified 09/02/21 14:56 Review of Systems Review of Systems: All systems reviewed & are unremarkable except as noted in HPI and below Constitutional: Constitutional: Reports no additional constitutional complaints Eyes: Eyes: Reports no additional eye complaints ENT: Reports system reviewed and no additional complaints, except as documented Cardiovascular: Cardiovascular: Reports no additional cardiovascular complaints Respiratory: Respiratory: Reports no additional respiratory complaints Gastrointestinal: Gastrointestinal: Reports abdominal pain, Reports bloating, Reports constipation, Denies heartburn, Denies diarrhea, Denies nausea and Denies vomiting Genitourinary: Genitourinary: Reports no additional male genitourinary complaints Musculoskeletal: Musculoskeletal: Reports no additional musculoskeletal complaints Integumentary/Breasts: Skin/Breast: Reports system reviewed and no additional complaints, except as docu Neurologic: Reports system reviewed and no additional complaints, except as documented Psychiatric: Psychiatric: Reports no additional psychiatric complaints Endocrine: Endocrine: Reports no additional endocrine complaints Hematologic/Lymphatic: Hematologic/Lymphatic: Reports no additional hematologic/lymphatic complaints Allergic/Immunologic: Allergic/Immunologic: Reports no additional allergic/immunologic complaints [facility] Past Medical History Medical History (Updated 09/02/21 @ 17:18 by Mary Gleason MD) Encounter for screening colonoscopy GERD (gastroesophageal reflux disease) HTN (hypertension) Hyperlipidemia Low back pain Obe
--- NOTE | 2021-09-02 15:16 | PC.NURSE ---
erp at bedside with tech for initial exam and rectal exam.
--- NOTE | 2021-09-02 15:17 | ECG_ITS ---
Measurements Intervals [place] Rate: 84 P: 47 KS: 170 QRS: -14 QRSD: 94 T: 33 QT: 369 QTc: 437 Interpretive Statements SINUS RHYTHM WITH OCCASIONAL VENTRICULAR PREMATURE COMPLEXES EARLY R-WAVE TRANSITION COMPARED TO ECG 11/14/2020 13:18:43 1 PVC IS SEEN Electronically Signed On 09-03-2021 7:22:36 CDT by Jose A Coughlin M.D.
[2021-09-02] MEDS: SODIUM CHLORIDE 0.9% IV 1,000 ML 999 ML IV CONT (15:30)
[2021-09-02 15:32] LABS: Add Urine Microscopic? NO; Appearance Urine Clear (Clear); Basophils Absolute Auto 0.05 K/mm3 (0.00-0.10); Bilirubin Urine Negative (Negative); Blood Urine Negative (Negative); Color Urine Yellow (Yellow); Eosinophils Absolute Auto 0.16 K/mm3 (0.02-0.50); Eosinophils Percent Auto 3.3 % (1.0-6.0); Glucose Urine UA Negative (Negative); Hematocrit 37.6 % (37.0-46.0); Immature Granulocyte Absolute 0.02 K/mm3 (0.00-0.00); Immature Granulocyte Percent A 0.4 % (0.0-0.0); Ketones Urine Negative (Negative); Leukocyte Esterase Ur Negative LEU/UL (Negative); Lymphocytes Absolute Auto 1.05 K/mm3 (1.10-4.50); Lymphocytes Percent Auto 21.8 % (18.0-42.0); Mean Corpuscular HGB Conc 34.6 g/dL (32.0-36.0); Mean Corpuscular Volume 83.7 fL (78.0-102.0); Mean Platelet Volume 10.7 fl (8.7-11.0); Monocytes Absolute Auto 0.71 K/mm3 (0.10-0.90); Monocytes Percent Auto 14.7 % (2.0-11.0); Neutrophils Absolute Auto 2.8 K/mm3 (1.7-7.2); Neutrophils Percent Auto 58.8 % (50.0-70.0); Nitrate Urine Negative (Negative); Platelet Count Result 136 K/mm3 (150-420); Protein Urine Negative (Negative); Red Blood Count 4.49 M/mm3 (4.70-6.10); Red Cell Distribution Width 13.2 % (11.6-14.4); Specific Grav Ur >= 1.030 (1.010-1.020); Urobilinogen Urine 0.2 mg/dL (0.2-1.0); White Blood Count 4.8 K/mm3 (4.8-10.8)
[2021-09-02 15:33] LABS: Occult Blood Negative (Negative)
[2021-09-02 15:42] LABS: Amylase 65 U/L (25-115)
[2021-09-02 15:49] LABS: Alanine Aminotransferase 37 U/L (16-63); Albumin Level 3.8 g/dL (3.4-5.0); Alkaline Phosphatase 64 U/L (46-116); Anion Gap 9 mmol/L (8-16); Aspartate Amino Transferase 27 U/L (15-37); Bilirubin,Total 1.1 mg/dL (0.00-1.00); Blood Urea Nitrogen 19 mg/dL (7-18); Calcium 8.4 mg/dL (8.5-10.1); Carbon Dioxide 26 mmol/L (21-32); Chloride 100 mmol/L (98-108); Estimated Glomerular Filt Rate > 60; Glucose 141 mg/dL (70-99); Lipase 69 U/L (73-393); Osmolality Calculated 284 mOsm/kg (285-295); Potassium 3.3 mmol/L (3.5-5.1); Sodium 135 mmol/L (136-145); Total Protein 7.3 g/dL (6.4-8.2); Troponin I 5.2 ng/L (0.00-60.4)
--- NOTE | 2021-09-02 16:07 | PC.NURSE ---
patient back in room from ct.
--- NOTE | 2021-09-02 17:03 | PC.NURSE ---
erp at bedside discussing ct report with pt
[2021-09-02] MEDS: SIMETHICONE 80 MG TAB.CHEW 160 MG PO (17:40)
[2021-09-02 17:47] VITALS: BP 126/66; PULSE 76; RESP 16; TEMP 36.2; O2SAT 98
== END 2021-09-02 17:48 | disposition home or self-care (01) ==
PROVIDERS: Emergency Provider Emergency Medicine; PCP Internal Medicine
DX: R10.9 Unspecified abdominal pain (principal); L25.5 Unspecified contact dermatitis due to plants, except food; K21.9 Gastro-esophageal reflux disease without esophagitis; I10 Essential (primary) hypertension; E78.5 Hyperlipidemia, unspecified
CPT/HCPCS: 36415; 74177; 80053; 81003; 82150; 82272; 83690; 84484; 85025; 85055; 93005; 96361; 96374; 99284; A9270; J1100; J7030; Q9967

== ENCOUNTER 2021-10-23 15:18 | Outpatient (CLI) | payer MEDICARE, SELFPAY ==
[2021-10-23 15:33] LABS: Basophils Absolute Auto 0.04 K/mm3 (0.00-0.10); Basophils Percent Auto 0.7 % (0.0-1.0); Eosinophils Absolute Auto 0.29 K/mm3 (0.02-0.50); Hematocrit 35.5 % (37.0-46.0); Hemoglobin 12.2 g/dL (12.4-15.3); Immature Granulocyte Absolute 0.01 K/mm3 (0.00-0.00); Immature Granulocyte Percent A 0.2 % (0.0-0.0); Lymphocytes Percent Auto 36.3 % (18.0-42.0); Mean Corpuscular HGB Conc 34.4 g/dL (32.0-36.0); Mean Corpuscular Hemoglobin 28.7 pg (27.0-31.0); Mean Corpuscular Volume 83.5 fL (78.0-102.0); Mean Platelet Volume 10.7 fl (8.7-11.0); Monocytes Absolute Auto 0.43 K/mm3 (0.10-0.90); Monocytes Percent Auto 7.4 % (2.0-11.0); Neutrophils Absolute Auto 2.9 K/mm3 (1.7-7.2); Neutrophils Percent Auto 50.4 % (50.0-70.0); Platelet Count Result 146 K/mm3 (150-420); Red Blood Count 4.25 M/mm3 (4.70-6.10); Red Cell Distribution Width 13.1 % (11.6-14.4); White Blood Count 5.8 K/mm3 (4.8-10.8)
[2021-10-23 15:51] LABS: Alanine Aminotransferase 32 U/L (16-63); Albumin Level 3.8 g/dL (3.4-5.0); Alkaline Phosphatase 50 U/L (46-116); Amylase 70 U/L (25-115); Anion Gap 10 mmol/L (8-16); Aspartate Amino Transferase 22 U/L (15-37); Bilirubin,Total 0.9 mg/dL (0.00-1.00); Blood Urea Nitrogen 17 mg/dL (7-18); Calcium 8.7 mg/dL (8.5-10.1); Carbon Dioxide 25 mmol/L (21-32); Chloride 103 mmol/L (98-108); Estimated Glomerular Filt Rate > 60; Glucose 147 mg/dL (70-99); Lipase 108 U/L (73-393); Osmolality Calculated 290 mOsm/kg (285-295); Potassium 3.5 mmol/L (3.5-5.1); Sodium 138 mmol/L (136-145); Total Protein 7.1 g/dL (6.4-8.2)
[2021-10-23 15:52] LABS: CRP < 0.2 mg/dL (0.0-0.9)
[2021-10-23 16:36] LABS: Erythrocyte Sedimentation Rate 25 mm/hr (0-20)
[2021-10-23 23:05] LABS: Add Urine Microscopic? YES; Appearance Urine Clear (Clear); Bilirubin Urine Negative (Negative); Blood Urine Negative (Negative); Color Urine Yellow (Yellow); Glucose Urine UA Negative (Negative); Ketones Urine Trace (Negative); Leukocyte Esterase Ur Negative (Negative); Nitrate Urine Negative (Negative); Protein Urine Negative (Negative); Urobilinogen Urine 0.2 mg/dL (0.2-1.0)
[2021-10-23 23:13] LABS: Bacteria Urine Trace /hpf; RBC Urine 0-2 /hpf (0-2); Squamous Epithelial Cell Urine Moderate /hpf (Few)
== END 2021-10-23 15:19 | disposition home or self-care (01) ==
LOC: CHSLAB 15:21
PROVIDERS: PCP Internal Medicine; Visit Provider Internal Medicine
DX: R10.9 Unspecified abdominal pain (principal); R19.7 Diarrhea, unspecified
CPT/HCPCS: 36415; 80053; 81001; 82150; 83690; 85025; 85652; 86140; 87324

== ENCOUNTER 2021-11-09 10:15 | Outpatient (CLI) | payer MEDICARE, SELFPAY ==
--- NOTE | ~2021-11-09 | XR_ITS ---
EXAMINATION: XR abdomen/kub 1V INDICATION: Unspecified abdominal pain TECHNIQUE: Supine views of the abdomen were obtained on 2 radiographs. COMPARISON: CT, 09/02/2021 FINDINGS: There is a moderate volume of colonic stool. There are mildly dilated small bowel the mid a bdomen. No free intraperitoneal gas is identified. There is moderate right and mild left hip osteoart hritis. Changes of posterior fusion and laminectomy are noted from L3 to L5. IMPRESSION: 1. Mildly dilated small bowel in the midabdomen, consistent with ileus versus partial obstruction. Reviewed, dictated and finalized at location A. IMPRESSION: 1. Mildly dilated small bowel in the midabdomen, consistent with ileus versus p artial obstruction.
== END 2021-11-09 10:16 | disposition home or self-care (01) ==
PROVIDERS: PCP Internal Medicine; Visit Provider Nurse Practitioner Family
DX: R10.9 Unspecified abdominal pain (principal)
CPT/HCPCS: 74018

== ENCOUNTER 2021-11-09 11:11 | Inpatient (IN) | payer MEDICARE, SELFPAY ==
--- NOTE | ~2021-11-09 | CT_ITS ---
EXAMINATION: CT abdomen pelvis w con DATE: 11/09/2021 12:24 INDICATION: Abdominal pain for 3 months. Ileus. TECHNIQUE: Computed tomography (CT) of the abdomen and pelvis was performed with 100 CC Omnipaque 350 intravenous contrast. Automated exposure control and iterative reconstruction technique were employe d. Exam dose: 1674.79 mGy-cm total exam DLP. COMPARISON: 11/09/2021 KUB 09/02/2021 CT abdomen pelvis FINDINGS: Right lower lobe calcified pulmonary granulomas and hepatic and splenic calcified granuloma s, consistent with old granulomatous disease. No infiltrate or consolidation at the lung bases. Normal heart size. No pericardial or pleural effusion. Approximately 3.5 cm posterior upper right hepatic peripherally enhancing centrally low attenuation a rosalinda is noted (series 3 images 33-43. Similar 2.1 cm lesion is noted at the lower posterior margin of the right hepatic lobe (series 3 imag e 79). Another 11 defined hypoattenuating lesion is suggested along the lower lateral right hepatic margin ( image 78). Metastases, hemangiomas, primary or metastatic hepatic lesions or abscess would be considered in the differential diagnosis. Consider hepatic MRI examination. Hepatic steatosis. The gallbladder is unremarkable. No bile duct or pancreatic duct dilatation. Normal morphology of the adrenal glands. No renal mass lesion or urinary tract calculus or hydroureteronephrosis. There is nonspecific moderat e thickening of the urinary bladder wall. Moderate prostate enlargement, which may account for the bl adder wall thickening. There is atherosclerotic calcification of the abdominal aorta but normal caliber of the abdominal aor ta and iliac arteries. No intraperitoneal or retroperitoneal or pelvic mass lesion or adenopathy or a scites. No bowel obstruction, bowel wall thickening, pneumatosis or intraperitoneal free air. Small fat-containing umbilical hernia. Status post bilateral posterior surgical fusion with pedicle screws and rods at L3-L5. Severe degenerative disease at L5-S1 IMPRESSION: Suggestion of several hepatic masses; differential diagnosis includes metastases, anna iomas, abscess. Consider hepatic MRI. Reviewed, dictated and finalized at Location A. Reviewed, dictated and finalized at location B. IMPRESSION: Suggestion of several hepatic masses; differential diagnosis inclu mary jane metastases, hemangiomas, abscess. Consider hepatic MRI.
--- NOTE | ~2021-11-09 | US_ITS ---
EXAMINATION: US biopsy liver DATE: 11/10/2021 14:11 INDICATION: Liver mass. TECHNIQUE: The procedure including the risks, benefits, and alternatives was discussed with the patie nt. Risks discussed included bleeding and infection. The patient understood the risks and agreed to p roceed. The skin overlying the right hepatic lobe was prepped and draped in usual sterile fashion. A nesthetic was administered with 1% lidocaine subcutaneously. An 18 gauge core biopsy needle was then used to obtain 3 core biopsy specimens under continuous sonographic guidance. The entry site was kallie aned and dressed. There were no immediate complications. FINDINGS: Ultrasound images demonstrate the needle in a 2.5 cm hypoechoic mass in right hepatic lobe. IMPRESSION: 1. Ultrasound-guided core needle biopsy of a liver mass. Reviewed, dictated and finalized at location A.
--- NOTE | ~2021-11-09 | MR_ITS ---
EXAMINATION: MR abdomen wo/w con DATE: 11/10/2021 07:04 INDICATION: Liver masses. Abdominal pain. TECHNIQUE: Magnetic resonance imaging (MRI) of the abdomen was performed without and with 20 mL Multi Carlos intravenous contrast. COMPARISON: CT abdomen and pelvis 11/09/2021 FINDINGS: There is diffuse hepatic steatosis. There are 4 masses in right hepatic lobe measuring up to 3.3 cm. The gallbladder, spleen, and adrenal glands are normal. There is a 5.8 cm mass centered in the body o f the pancreas. There is atrophy of the tail of the pancreas. The adrenal glands and kidneys are norm al. 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 Gastric varices are noted. There is dilated small bowel without focal transition point. There is no free intraperitoneal fluid. There are changes of posterior fusion procedure in lumbar spine. There are no pathologically enlarged lymph nodes. IMPRESSION: 1. Pancreatic mass, consistent with primary adenocarcinoma. 2. Liver masses, consistent with metastatic disease. Ultrasound-guided core needle biopsy is recommen ded. 3. Dilated small bowel without focal transition point, consistent with adynamic ileus. Reviewed, dictated and finalized at location A. IMPRESSION: 1. Pancreatic mass, consistent with primary adenocarcinoma. 2. Liver masses, consistent with metastatic disease. Ultrasound-guided core nee dle biopsy is recommended. 3. Dilated small bowel without focal transition point, consistent with adynamic ileus.
[2021-11-09 11:16] VITALS: BP 166/92; PULSE 95; RESP 18; TEMP 36.6; O2SAT 99
[2021-11-09 11:32] LABS: Basophils Absolute Auto 0.1 K/mm3 (0.0-0.1); Basophils Percent Auto 0.8 % (0.2-1.2); Eosinophils Absolute Auto 0.2 K/mm3 (0-0.3); Eosinophils Percent Auto 3.8 % (0-4.4); Hematocrit 37.6 % (42.0-52.0); Hemoglobin 12.8 g/dL (14.0-18.0); Immature Granulocyte Absolute 0.01 K/mm3 (0.00-0.031); Immature Granulocyte Percent A 0.2 % (0-0.5); Immature Platelet Fraction Pct 6.3 % (0.9-11.2); Lymphocytes Absolute Auto 2.12 K/mm3 (0.9-3.2); Lymphocytes Percent Auto 34.8 % (18.3-44.2); Mean Corpuscular Hemoglobin 28.6 pg (26-34); Mean Corpuscular Volume 84.1 fl (80-100); Mean Platelet Volume 10.6 fl (7.4-10.4); Monocytes Absolute Auto 0.5 K/mm3 (0.1-0.6); Monocytes Percent Auto 7.4 % (2.6-8.5); Neutrophils Absolute Auto 3.2 K/mm3 (1.3-6.7); Platelet Count Result 154 k/mm3 (150-375); Red Blood Count 4.47 M/mm3 (4.6-6.20); Red Cell Distribution Width 13.6 % (11.5-14.5); White Blood Count 6.1 K/mm3 (4.5-10.0)
--- NOTE | 2021-11-09 11:39 | ED.ABDPAIN ---
HPI - Abdominal Pain General Chief Complaint: Abdominal Pain Stated Complaint: from XR, ?bowel blockage Time Seen by Provider: 11/09/21 11:32 Source: patient Mode of arrival: ambulatory Limitations: no limitations History of Present Illness HPI narrative: The patient is a 65 year old with history of HLD, HTN, acid reflux, GERD s/p Sue Fundoplication in 1998, presenting to the ER for evaluation of potential ileus vs partial bowel obstruction. Patient states that he has felt unwell over the past month with abdominal distention, discomfort that is postprandial in nature. Patient states that sometimes after he eats he will experience some improvement in pain with then recurrence after a few hours. Patient reports a cramping sensation in the lower abdomen as well as distention. He reports difficulties with bowel movements and irregularity. He reports mild constipation. He has been taking Tylenol PM without much improvement in his symptoms. Denies use of other medications. He denies fever, chills, nausea, vomiting. Patient was seen by Dr. Oshea' s office today and then was referred here for evaluation given KUB which showed evidence of ileus versus partial obstruction. Recently, patient has been seen at [facility] ultimately had reassuring imaging and was discharged home with use of simethicone. Related Data Home Medications Medication Instructions Recorded Confirmed amlodipine 10 mg tablet 10 mg PO DAILY 06/10/20 11/09/21 losartan 50 mg-hydrochlorothiazide 1 tablet PO DAILY 07/24/21 11/09/21 12.5 mg tablet omeprazole 40 mg capsule,delayed 40 mg PO DAILY 07/24/21 11/09/21 release multivitamin,tx-minerals 1 cap PO DAILY 11/09/21 11/09/21 (Multi-Vitamin HP/Minerals capsule) potassium chloride 10 mEq 10 meq PO DAILY 11/09/21 11/09/21 tablet,extended release Allergies Allergy/AdvReac Type Severity Reaction Status Date / Time No Known Allergies Allergy Verified 11/09/21 11:20 Review of Systems Review of Systems: CONSTITUTIONAL: Denies fever, chills, or sweats. EYES: Denies visual changes, redness, or discharge. ENT: Denies rhinorrhea, congestion, sore throat, or otalgia. CARDIOVASCULAR: Denies chest pain, palpitations, or edema. RESPIRATORY: Denies cough or dyspnea. GASTROINTESTINAL: Reports abdominal pain, distention, constipation GENITOURINARY: Denies dysuria or hematuria. SKIN: Denies rash or itching. MUSCULOSKELETAL: Denies back pain, joint pain, or myalgia. NEUROLOGIC: Denies headache, numbness, or weakness. [facility] Past Medical History Medical History Encounter for screening colonoscopy GERD (gastroesophageal reflux disease) HTN (hypertension) Hyperlipidemia Low back pain Obesity (BMI 30-39.9) Surgical History Surgical History H/O spinal fusion History of repair of hiatal hernia Social History Social History Smoking status: Never smoker Alcohol intake: current Alcohol use details: occasional Substance use: never Substance use type: does not use Spiritual care concerns: No Exam Narrative: GENERAL: Awake, alert, conversant HEAD: Normocephalic, atraumatic. EYES: PERRLA and EOMI. ENT: Nares clear, no rhinorrhea or epistaxis. Mucous membranes moist. NECK: Supple. CHEST: No respiratory distress, breathing even and non labored HEART: Regular rate, sinus rhythm ABDOMEN: Mild distention, tender in the right and left upper quadrant, no rebound, rigidity or guarding, no borborygmi on exam, bowel sounds in all 4 quadrants EXTREMITIES: Normal range of motion. No edema. SKIN: Warm, dry, no rash. NEURO:No focal deficits. Alert and oriented x3 Course Vital Signs Vital signs: Vital Signs Temperature 36.6 C 11/09/21 11:16 Pulse Rate 95 11/09/21 11:16 Respiratory Rate 18 11/09/21 11:16 Blood Pressure
[2021-11-09 11:45] LABS: Alanine Aminotransferase 27 U/L (6-50); Albumin Level 4.9 g/dL (3.5-5.1); Alkaline Phosphatase 52 U/L (38-126); Anion Gap 11 mmol/L (8-16); Aspartate Amino Transferase 33 U/L (17-59); Bilirubin,Total 1.6 mg/dL (0.2-1.3); Blood Urea Nitrogen 15 mg/dL (9-20); Calcium 9.8 mg/dL (8.4-10.2); Carbon Dioxide 26 mmol/L (22-30); Chloride 100 mmol/L (98-107); Estimated CRCL calculation 124 ml/min; Estimated Glomerular Filt Rate > 60; Glucose 130 mg/dL (65-110); Lipase 98 U/L (23-300); Potassium 3.7 mmol/L (3.4-5.0); Sodium 137 mmol/L (137-145)
[2021-11-09 11:50] LABS: Appearance Urine Clear (Clear); Bilirubin Urine Negative (Negative); Blood Urine Negative (Negative); Color Urine Yellow (Yellow); Glucose Urine UA Negative (Negative); Ketones Urine Negative (Negative); Leukocyte Esterase Ur Negative LEU/UL (Negative); Nitrate Urine Negative (Negative); Protein Urine Negative (Negative); Specific Grav Ur 1.025 (1.001-1.035); Urobilinogen Urine 0.2 mg/dL (<2.0); pH Urine 5.5 (5.0-9.0)
[2021-11-09 12:20] LABS: Add Urine Microscopic? NO
[2021-11-09] MEDS: SODIUM CHLORIDE 0.9% IV 1,000 ML 999 ML IV CONT (12:26)
[2021-11-09] MEDS: ONDANSETRON INJ 4 MG/2 ML VIAL IV PUSH (12:26)
[2021-11-09] MEDS: MORPHINE SULFATE (*CRX) 4 MG/ML INJ IV PUSH ×5 (12:26→23:56)
[2021-11-09 14:39] VITALS: BP 164/84; PULSE 62; RESP 18; O2SAT 98
[2021-11-09 15:30] VITALS: BP 160/80; PULSE 67; RESP 16; TEMP 36.4; O2SAT 96
--- NOTE | 2021-11-09 15:48 | PC.NURSE ---
This patient, Jason Krishnamurthy, was admitted to [facility] Surg Room 321-01. Patient/family oriented to hospital policies and general routines including ID bracelet, bed and alarms, visiting hours, pain management, procedures, bathroom and other care routines, personal items, smoking policy, room service/diet, and visiting hours. Information on how to activate the Rapid Response Team has been discussed. Patient/Family are encouraged to report perceived risks to care and to ask questions if they do not understand what they are told or what they should do.
[2021-11-09 15:52] VITALS: BMI 35.9
[2021-11-09] MEDS: LACTATED RINGERS 1,000 ML 125 ML IV CONT ×2 (16:21→23:57)
--- NOTE | 2021-11-09 19:24 | PM.IMHP ---
H&P: HPI History of Present Illness Date/Time: 11/09/21 19:24 Chief Complaint: Abdominal pain Narrative: This is a 65-year-old male patient has a history of hyperlipidemia, hypertension acid reflux. Patient has GERD with a history of Maxi fundoplication in 1998. The patient came to the emergency room to be evaluated for an ileus versus a small-bowel obstruction. The patient has not been faring very well for the last month. He has had abdominal distension discomfort that is postprandial nature. The patient stated he has not been able to eat for the last 2 days because of the pain and distention. Patient has a cramping sensation is lower abdomen as well as in the middle of the abdomen. Patient stated his bowel movements are regular. He has been dealing with some mild constipation. The patient went to be seen by Dr. Oshea's office today and was referred to the emergency room after his KUB showed evidence of ileus versus partial obstruction. CT scan from today shows suggestion of several [place] masses differential diagnosis includes metastasis hemangiomas and abscess consider hepatic MRI. This is been ordered and GI has been consulted as well. His H&H is 12.8 and 37.6. The patient was given IV Tylenol, morphine, IV fluids and Zofran. The patient is being admitted to observation status on the date of service of 11/09/2021. Review of Systems Review of Systems: See HPI All systems reviewed & are unremarkable except as noted in HPI and below Constitutional: Constitutional: Reports as per HPI and Reports no additional constitutional complaints Eyes: Eyes: Reports as per HPI and Reports no additional eye complaints ENT: Reports system reviewed and no additional complaints, except as documented and Reports Normal hearing present Cardiovascular: Cardiovascular: Reports no additional cardiovascular complaints Respiratory: Respiratory: Reports no additional respiratory complaints and Reports no additional respiratory complaints Gastrointestinal: Gastrointestinal: Reports as per HPI and Reports no additional gastrointestinal complaints Musculoskeletal: Musculoskeletal: Reports no additional musculoskeletal complaints Integumentary/Breasts: Skin/Breast: Reports system reviewed and no additional complaints, except as docu and Reports as per HPI Neurologic: Reports system reviewed and no additional complaints, except as documented, Reports as per HPI and Reports Normal hearing present Psychiatric: Psychiatric: Reports no additional psychiatric complaints and Reports as per HPI Endocrine: Endocrine: Reports no additional endocrine complaints Hematologic/Lymphatic: Hematologic/Lymphatic: Reports no additional hematologic/lymphatic complaints Allergic/Immunologic: Allergic/Immunologic: Reports no additional allergic/immunologic complaints PMFSH Past Medical History Medical History Encounter for screening colonoscopy GERD (gastroesophageal reflux disease) HTN (hypertension) Hyperlipidemia Low back pain Obesity (BMI 30-39.9) Surgical History Surgical History H/O spinal fusion History of repair of hiatal hernia Family History Family History (Updated 11/09/21 @ 19:29 by Daniela Vitale NP) Father Heart disease Mother Heart disease Social History Social History (Updated 11/09/21 @ 19:30 by Daniela Vitale NP) Social History: The patient lives at home with his and he has a stepson. 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 He denies any alcohol marijuana or illicit drugs. His is the durable power commercial attorney for healthcare. Code status full code Smoking status: Never smoker Second hand tobacco smoke exposure: No Alcohol intake: current Alcohol use details: occasional Substance use: never Substance use type: does not use Spiritual care concerns: No Meds Home Medications and All
[2021-11-09 21:52] VITALS: BP 150/70; PULSE 67; RESP 16; TEMP 36.2; O2SAT 99
[2021-11-10] MEDS: MORPHINE SULFATE (*CRX) 4 MG/ML INJ IV PUSH ×6 (03:11→22:23)
[2021-11-10 05:35] VITALS: BP 130/77; PULSE 63; RESP 18; TEMP 35.8; O2SAT 99
[2021-11-10] MEDS: LACTATED RINGERS 1,000 ML 125 ML IV CONT (07:15)
[2021-11-10 08:20] LABS: Lactic Acid Reflex 0.9 mmol/L (0.7-2.0)
[2021-11-10 08:24] LABS: Alanine Aminotransferase 24 U/L (6-50); Albumin Level 3.9 g/dL (3.5-5.1); Alkaline Phosphatase 44 U/L (38-126); Anion Gap 8 mmol/L (8-16); Aspartate Amino Transferase 26 U/L (17-59); Bilirubin,Total 1.3 mg/dL (0.2-1.3); Blood Urea Nitrogen 11 mg/dL (9-20); CRP < 0.5 mg/dL (<1.0); Calcium 8.9 mg/dL (8.4-10.2); Carbon Dioxide 27 mmol/L (22-30); Chloride 100 mmol/L (98-107); Estimated CRCL calculation 141 ml/min; Estimated Glomerular Filt Rate > 60; Glucose 121 mg/dL (65-110); Lactate Dehydrogenase 134 U/L (120-246); Lipase 56 U/L (23-300); Magnesium 1.7 mg/dL (1.6-2.3); Potassium 3.4 mmol/L (3.4-5.0); Sodium 135 mmol/L (137-145)
[2021-11-10 08:26] LABS: INR 1.1; Partial Thromboplastin Time 27.8 SECONDS (22.3-36.8); Prothrombin Time 13.8 Seconds (11.1-14.7)
[2021-11-10 08:28] LABS: Eosinophils Absolute Auto 0.2 K/mm3 (0-0.3); Eosinophils Percent Auto 4.3 % (0-4.4); Hematocrit 32.4 % (42.0-52.0); Hemoglobin 10.9 g/dL (14.0-18.0); Immature Granulocyte Absolute 0.04 K/mm3 (0.00-0.031); Lymphocytes Absolute Auto 1.34 K/mm3 (0.9-3.2); Mean Corpuscular HGB Conc 33.6 g/dl (32-36); Mean Corpuscular Hemoglobin 28.8 pg (26-34); Mean Corpuscular Volume 85.5 fl (80-100); Mean Platelet Volume 11.1 fl (7.4-10.4); Monocytes Absolute Auto 0.3 K/mm3 (0.1-0.6); Monocytes Percent Auto 7.9 % (2.6-8.5); Neutrophils Absolute Auto 2.3 K/mm3 (1.3-6.7); Neutrophils Percent Auto 53.8 % (45.5-73.1); Platelet Count Result 105 k/mm3 (150-375); Red Blood Count 3.79 M/mm3 (4.6-6.20); Red Cell Distribution Width 13.7 % (11.5-14.5); White Blood Count 4.2 K/mm3 (4.5-10.0)
[2021-11-10] MEDS: PANTOPRAZOLE 40 MG TABLET PO ×2 (09:34→20:09)
[2021-11-10] MEDS: POTASSIUM CHLORIDE 10 MEQ TABLET.ER PO (09:36)
[2021-11-10] MEDS: THERAPEUTIC MULTIVITAMINS/MINERALS TAB (*BKC) 1 TABLET PO (09:37)
[2021-11-10] MEDS: hydroCHLOROthiazide 12.5 MG CAPSULE PO (09:37)
[2021-11-10] MEDS: amLODIPine BESYLATE 5 MG TABLET 10 MG PO (09:38)
[2021-11-10] MEDS: LOSARTAN POTASSIUM 50 MG TABLET PO (09:40)
[2021-11-10 10:18] LABS: Free T4 Free Thyroxine Reflex 1.34 ng/dL (0.78-2.19)
[2021-11-10 10:46] VITALS: BMI 35.9
[2021-11-10 13:35] VITALS: BP 143/74; PULSE 77; RESP 16; O2SAT 100
--- NOTE | 2021-11-10 13:36 | PM.IMPN ---
Progress Note: A&P Assessment and Plan (1) Pancreatic cancer metastasized to liver: Code(s): C25.9 - Malignant neoplasm of pancreas, unspecified; C78.7 - Secondary malignant neoplasm of liver and intrahepatic bile duct Status: Suspected Assessment and Plan: Suspected. Patient presented with abdominal pain ongoing intermittently the past 2-3 months Abdominal MRI revealed pancreatic mass consistent with primary adenocarcinoma with liver masses consistent with metastatic disease Ultrasound-guided liver biopsy pending today Appreciate gastroenterology consultation Consult to Oncology Will obtain CA 19-9 Lipase and liver enzymes within normal limits (2) Ileus: Code(s): K56.7 - Ileus, unspecified Status: Acute Assessment and Plan: Patient complains of mild bloating. Outpatient KUB completed on 11/09 which showed mildly dilated small bowel in the mid abdomen Abdominal MRI shows dilated small bowel without focal transition point consistent with adynamic ileus Supportive care. IV fluids. Encourage ambulation. Advanced diet slowly and as tolerated following following liver biopsy (3) HTN (hypertension): Code(s): I10 - Essential (primary) hypertension Status: Acute Assessment and Plan: Blood pressures reviewed and have been stable. Last BP 160/68 Continue home amlodipine, losartan-hydrochlorothiazide (4) GERD (gastroesophageal reflux disease): Code(s): K21.9 - Gastro-esophageal reflux disease without esophagitis Status: Acute Assessment and Plan: No acute issues at this time Continue pantoprazole (5) Hyperlipidemia: Code(s): E78.5 - Hyperlipidemia, unspecified Status: Acute Assessment and Plan: Not on statin therapy Subjective Date/time seen: 11/10/21 13:36 Interval history: Date of service: 11/10/2021 Jason Krishnamurthy is a 65-year-old male with a history of hypertension, hyperlipidemia, GERD who is seen in follow-up for pancreatic and liver mass. The patient feels generally in his usual state of health today. He has no abdominal pain. He states that his abdomen feels ?taut? which is unchanged for the past several weeks. He has had somewhat of a decreased appetite but for the most part has been tolerating all of his meals. He endorses approximately 10 lb weight loss over the past 3 months which he did not really think much of. He denies any night sweats, fevers, chills. He he has been able to ambulate independently and denies dizziness or lightheadedness. He still is working out in the yd and mowing and weed eating. He states that he might have been a little bit more weak recently but not significantly. He states his last bowel movement was 2 days ago and endorses passing flatus. He has been NPO today and has not had anything to eat or drink. His is present at the bedside. Review of Systems Review of Systems: All systems reviewed & are unremarkable except as noted in HPI and below Exam Narrative: General: Well-nourished, well-appearing 65-year-old male, sitting up in bed, comfortable, NARD Neuro: awake, alert and oriented x4, speech clear, no focal neuro deficits noted HEENMT: normocephalic, atraumatic, EOMI, sclerae anicteric Respiratory: clear to auscultation bilaterally, nonlabored breathing Cardio: regular rate, regular rhythm with S1-S2 Abdomen: Mildly distended, normoactive bowel sounds, soft, nontender to palpation Extremities: no edema, erythema, or tenderness to palpation, DP pulses 2+ bilaterally Skin: no rashes or lesions, warm and dry Psych: Pleasant and cooperative, appropriate mood and affect, judgment and insight intact Objective Data Vital Signs Vital Signs: Vital Signs - 24 hr 11/09/21 14:39 11/09/21 16:00 11/09/21 15:30 Temperature 97.6 F Pulse Rate 62 67 Respiratory Rate 18 16 Blood Pressure 164/84 H 160/80 H Pulse Oximetry 98 96 Oxygen Delivery Sandra
[2021-11-10 13:37] VITALS: BP 160/68; PULSE 83; RESP 17; O2SAT 100
--- NOTE | 2021-11-10 13:43 | WPDGICN ---
Assessment and Plan Assessment and plan (1) Pancreatic cancer metastasized to liver: Code(s): C25.9 - Malignant neoplasm of pancreas, unspecified; C78.7 - Secondary malignant neoplasm of liver and intrahepatic bile duct Status: Acute Assessment and Plan: unfortunately new diagnosis of most likely pancreatic cancer with mets to liver will get biopsy and ask hem-oncology to see patient liver enzymes normal lipase in the past was normal ca 19-9 pending (2) Liver masses: Code(s): R16.0 - Hepatomegaly, not elsewhere classified Status: Acute Assessment and Plan: pending biopsy (3) Abdominal pain: Code(s): R10.9 - Unspecified abdominal pain Status: Acute Assessment and Plan: most likely from new diagnosis of malignancy (4) GERD (gastroesophageal reflux disease): Code(s): K21.9 - Gastro-esophageal reflux disease without esophagitis Status: Acute (5) Bloating: Code(s): R14.0 - Abdominal distension (gaseous) Status: Acute (6) Anemia: Code(s): D64.9 - Anemia, unspecified Status: Acute Assessment and Plan: hb ~ 10, no signs of bleeding probably from underlying malignancy GI Consult Note Consult date/time: 11/10/21 13:43 Reason for consult: bloating, abdominal pain HPI: Jason Krishnamurthy is a 65 year old male with history of hyperlipidemia, HTN, GERD s/p Sue Fundoplication in 1998 who had EGD earlier this year for more gerd symptoms and was unremarkable, then colonoscopy with small polyp removed. He came back to see us in the office because of 2-3 months of bloating associated with pain in left abdomen but last couple days worsened. KUB was ordered that showed possible ileus and we called him to go to ER for further evaluation. CT scan showed liver lesions and finally MRI liver was obtained which showed pancreatic mass with possible liver mets. Denies weight loss, jaundice, nausea or vomiting. Liver enzymes normal, hb 10 Review of Systems Review of Systems: See HPI All systems reviewed & are unremarkable except as noted in HPI and below Constitutional: Constitutional: Reports as per HPI and Reports no additional constitutional complaints Eyes: Eyes: Reports as per HPI and Reports no additional eye complaints ENT: Reports system reviewed and no additional complaints, except as documented and Reports Normal hearing present Cardiovascular: Cardiovascular: Reports no additional cardiovascular complaints Respiratory: Respiratory: Reports no additional respiratory complaints and Reports no additional respiratory complaints Gastrointestinal: Gastrointestinal: Reports as per HPI and Reports no additional gastrointestinal complaints Musculoskeletal: Musculoskeletal: Reports no additional musculoskeletal complaints Integumentary/Breasts: Skin/Breast: Reports system reviewed and no additional complaints, except as docu and Reports as per HPI Neurologic: Reports system reviewed and no additional complaints, except as documented, Reports as per HPI and Reports Normal hearing present Psychiatric: Psychiatric: Reports no additional psychiatric complaints and Reports as per HPI Endocrine: Endocrine: Reports no additional endocrine complaints Hematologic/Lymphatic: Hematologic/Lymphatic: Reports no additional hematologic/lymphatic complaints Allergic/Immunologic: Allergic/Immunologic: Reports no additional allergic/immunologic complaints PMFSH Past Medical History Medical History (Updated 11/10/21 @ 13:50 by Varghese Keith MD) Anemia Bloating Encounter for screening colonoscopy GERD (gastroesophageal reflux disease) HTN (hypertension) Hyperlipidemia Low back pain Obesity (BMI 30-39.9) Pancreatic cancer metastasized to liver Surgical History Surgical History H/O spinal fusion History of repair of hiatal hernia Family History Family History (Updated
[2021-11-10 13:54] LABS: Total Triiodothyronine (T3) 1.31 NG/ML (0.97-1.69)
[2021-11-10 14:00] VITALS: BP 141/73; PULSE 88; RESP 20; TEMP 36.8; O2SAT 97
[2021-11-10] MEDS: LACTATED RINGERS 1,000 ML 100 ML IV CONT (15:14)
--- NOTE | 2021-11-10 18:23 | PDONCCN ---
HPI - Date of Consult Date/Time: 11/10/21 18:23 Requesting Physician: Carole Allred PA-C Primary Care Provider: Jo Kinney MD - Consult Narrative Reason for consult: Pancreatic mass Narrative: Jason Krishnamurthy is a 65 year old male who has been in good health except history of hypertension, hyperlipidemia and GERD. Patient had Sue fundoplication done in 1998. He has been dealing with abdominal bloating and discomfort since memory day. He lost 10 lb weight. He has pain after eating with radiate to the back. He had occasional diarrhea. Denies any nausea vomiting. CT scan showed several hepatic metastasis. Abdominal MRI showed 4 masses in the right hepatic lobe. 5.8 cm mass in the body of the pancreas. Liver biopsy was performed today. He denies any previous history of malignancy. He denies any history of smoking. He very rarely drinks alcohol. There is a family history of glioblastoma in the mother and uncle had stomach cancer. Review of Systems - Review of Systems All systems reviewed & are unremarkable except as noted in HPI and bel - Neurologic Reports system reviewed and no additional complaints, except as documented, Reports hearing normal [facility] Medical History: Medical History (Last Updated 11/10/21 @ 13:54 by Carole Allred PA-C) Anemia Bloating Encounter for screening colonoscopy GERD (gastroesophageal reflux disease) HTN (hypertension) Hyperlipidemia Low back pain Obesity (BMI 30-39.9) Pancreatic cancer metastasized to liver Surgical History: Surgical History (Last Reviewed 11/09/21 @ 19:27 by Daniela Vitale NP) H/O spinal fusion History of repair of hiatal hernia Family History: Family History (Last Updated 11/09/21 @ 19:29 by Daniela Vitale NP) Father Heart disease Mother Heart disease - Social History Social History: Social History (Last Updated 11/09/21 @ 19:30 by Daniela Vitale NP) Alcohol Use: Alcohol intake: current Alcohol use details: occasional Substance Use: Substance use: never Substance use type: does not use Others: Spiritual care concerns: No Smoking Status: Smoking status: Never smoker Second hand tobacco smoke exposure: No Exam - Vital Signs Vital Signs - 24 hr 11/09/21 21:52 11/10/21 05:35 11/10/21 08:00 Temperature 36.2 C L 35.8 C L Pulse Rate 67 63 Respiratory Rate 16 18 Blood Pressure 150/70 H 130/77 Pulse Oximetry 99 99 Oxygen Delivery Room Air 11/10/21 13:35 11/10/21 13:37 11/10/21 14:00 Temperature 36.8 C Pulse Rate 77 83 88 Respiratory Rate 16 17 20 Blood Pressure 143/74 H 160/68 H 141/73 H Pulse Oximetry 100 100 97 Oxygen Delivery - Exam HEENT: EOMI, PERRLA, mucous membranes moist and pink, nares patent, sclera clear Neck: supple. No: JVD Lungs: clear to auscultation, normal air movement Heart: no murmurs, gallops, or rubs, regular rhythm, regular rate Abdomen: abdomen soft, normal bowel sounds, distended Extremities: normal pulses Integumentary: no abnormalities Neurological: normal speech Psychological: mental status NL, mood NL - Lab Results Laboratory Last Values WBC 4.2 K/mm3 (4.5-10.0) L 11/10/21 07:51 RBC 3.79 M/mm3 (4.6-6.20) L 11/10/21 07:51 Hgb 10.9 g/dL (14.0-18.0) L 11/10/21 07:51 Hct 32.4 % (42.0-52.0) L 11/10/21 07:51 MCV 85.5 fl (80-100) 11/10/21 07:51 MCH 28.8 pg (26-34) 11/10/21 07:51 MCHC 33.6 g/dl (32-36) 11/10/21 07:51 RDW 13.7 % (11.5-14.5) 11/10/21 07:51 Plt Count 105 k/mm3 (150-375) L 11/10/21 07:51 MPV 11.1 fl (7.4-10.4) H 11/10/21 07:51 Immature Gran % (Auto) 1.0 % (0-0.5) H 11/10/21 07:51 Neut % (Auto) 53.8 % (45.5-73.1) 11/10/21 07:51 Lymph % (Auto) 32.0 % (18.3-44.2) 11/10/21 07:51 [place] % (Auto) 7.9 % (2.6-8.5) 11/10/21 07:51 Eos % (Auto) 4.3 % (0-4.4) 11/10/21 07:51 Baso % (Auto)
[2021-11-10] MEDS: DOCUSATE SODIUM 100 MG CAPSULE PO (20:09)
[2021-11-10 20:41] VITALS: BP 114/66; PULSE 75; RESP 20; TEMP 37.1; O2SAT 98
[2021-11-11] MEDS: LACTATED RINGERS 1,000 ML 100 ML IV CONT (00:55)
[2021-11-11] MEDS: MORPHINE SULFATE (*CRX) 4 MG/ML INJ IV PUSH ×4 (00:55→17:57)
[2021-11-11 06:00] VITALS: BP 133/64; PULSE 66; RESP 20; TEMP 36.3; O2SAT 100
[2021-11-11 06:05] LABS: Hematocrit 32.3 % (42.0-52.0); Mean Corpuscular HGB Conc 34.1 g/dl (32-36); Mean Corpuscular Hemoglobin 28.8 pg (26-34); Mean Corpuscular Volume 84.6 fl (80-100); Mean Platelet Volume 11.2 fl (7.4-10.4); Platelet Count Result 106 k/mm3 (150-375); Red Blood Count 3.82 M/mm3 (4.6-6.20); Red Cell Distribution Width 13.6 % (11.5-14.5); White Blood Count 4.1 K/mm3 (4.5-10.0)
[2021-11-11 06:17] LABS: Alanine Aminotransferase 23 U/L (6-50); Albumin Level 4.1 g/dL (3.5-5.1); Alkaline Phosphatase 45 U/L (38-126); Anion Gap 12 mmol/L (8-16); Aspartate Amino Transferase 28 U/L (17-59); Bilirubin,Total 1.2 mg/dL (0.2-1.3); Blood Urea Nitrogen 7 mg/dL (9-20); Calcium 8.7 mg/dL (8.4-10.2); Carbon Dioxide 32 mmol/L (22-30); Chloride 94 mmol/L (98-107); Estimated CRCL calculation 124 ml/min; Estimated Glomerular Filt Rate > 60; Glucose 131 mg/dL (65-110); Potassium 3.7 mmol/L (3.4-5.0); Sodium 138 mmol/L (137-145)
[2021-11-11] MEDS: LOSARTAN POTASSIUM 50 MG TABLET PO (08:50)
[2021-11-11] MEDS: DOCUSATE SODIUM 100 MG CAPSULE PO ×2 (08:50→20:04)
[2021-11-11] MEDS: amLODIPine BESYLATE 5 MG TABLET 10 MG PO (08:50)
[2021-11-11] MEDS: PANTOPRAZOLE 40 MG TABLET PO ×2 (08:50→20:04)
[2021-11-11] MEDS: THERAPEUTIC MULTIVITAMINS/MINERALS TAB (*BKC) 1 TABLET PO (08:51)
[2021-11-11] MEDS: hydroCHLOROthiazide 12.5 MG CAPSULE PO (08:51)
[2021-11-11] MEDS: POTASSIUM CHLORIDE 10 MEQ TABLET.ER PO (08:51)
--- NOTE | 2021-11-11 10:45 | WPDGIPROGNO ---
Progress Note: A&P Assessment and Plan (1) Pancreatic cancer metastasized to liver: Code(s): C25.9 - Malignant neoplasm of pancreas, unspecified; C78.7 - Secondary malignant neoplasm of liver and intrahepatic bile duct Status: Suspected Assessment and Plan: Scanning suggest pancreatic cancer primary with metastases to liver. Biopsy performed yesterday. Histology pending. Tumor marker CA 19-9 also pending. Plans for supportive care present. Appreciate oncology follow-up in opinions. (2) Abdominal pain: Code(s): R10.9 - Unspecified abdominal pain Status: Acute Assessment and Plan: Abdominal pain diffuse and poorly localized currently controlled with pain medications. (3) Ileus: Code(s): K56.7 - Ileus, unspecified Status: Acute Assessment and Plan: No ileus at present this appears to be resolved. Subjective Date/time seen: 11/11/21 10:45 Patient alert comfortable this morning having received pain injection. Otherwise feels somewhat bloated diffusely. Passing bowel movements. Tolerating diet. biopsy performed yesterday. CA 19-9 pending Review of Systems Review of Systems: review of systems noncontributory. Exam Narrative: Physical exam reveals patient be alert comfortable at rest he is anicteric. Lungs are clear. Heart without murmur. Abdomen bowel sounds present soft no localized tenderness no localized mass. Objective Data Vital Signs Vital Signs: Vital Signs - 24 hr 11/10/21 13:35 11/10/21 13:37 11/10/21 14:00 Temperature 98.2 F Pulse Rate 77 83 88 Respiratory Rate 16 17 20 Blood Pressure 143/74 H 160/68 H 141/73 H Pulse Oximetry 100 100 97 Oxygen Delivery 11/10/21 20:41 11/11/21 06:00 11/11/21 08:00 Temperature 98.8 F 97.4 F L Pulse Rate 75 66 Respiratory Rate 20 20 Blood Pressure 114/66 133/64 Pulse Oximetry 98 100 Oxygen Delivery Room Air Intake/Output Intake/Output: Intake & Output 11/08/21 11/09/21 11/10/21 11/11/21 23:59 23:59 23:59 23:59 Intake Total 2650 3850 2200 Balance 2650 3850 2200 Meds/Results Medications: Active Medications Generic Name Dose Route Start Last Admin Trade Name Freq PRN Reason Stop Dose Admin Amlodipine Besylate 10 mg 11/10/21 09:00 11/11/21 08:50 Amlodipine Besylate 5 Mg Tablet PO 10 mg DAILY LENKA Administration Dicyclomine HCl 20 mg 11/09/21 14:04 Dicyclomine Hcl Inj 20 Mg/2 Ml Vial IM Q6H PRN Abdominal Cramping Docusate Sodium 100 mg 11/10/21 21:00 11/11/21 08:50 Docusate Sodium 100 Mg Capsule PO 100 mg Q12HR LENKA Administration Hydrochlorothiazide 12.5 mg 11/10/21 09:00 11/11/21 08:51 Hydrochlorothiazide 12.5 Mg Capsule PO 12.5 mg QAM LENKA Administration Losartan Potassium 100 mg 11/12/21 09:00 Losartan Potassium 100 Mg Tablet PO 12/10/21 08:59 DAILY LENKA Morphine Sulfate 4 mg 11/09/21 14:04 11/11/21 08:52 Morphine Sulfate (*Crx) 4 Mg/Ml Inj IV PUSH 4 mg Q2H PRN Administration Pain Rated 7-10 Multivitamins/Calcium 1 tablet 11/10/21 09:00 11/11/21 08:51 Therapeutic Multivitamins/Minerals Tab (*Bkc) PO 1 tablet DAILY LENKA Administration Ondansetron HCl 4 mg 11/09/21 14:04 Ondansetron Inj 4 Mg/2 Ml Vial IV PUSH Q4H PRN Nausea Pantoprazole Sodium 40 mg 11/10/21 09:00 11/11/21 08:50 Pantoprazole 40 Mg Tablet PO 40 mg Q12HR LENKA Administration Potassium Chloride 10 meq 11/10/21 09:00 11/11/21 08:51 Potassium Chloride 10 Meq Tablet.Er PO 10 meq DAILY LENKA Administration Radiology Results: ITS Impressions Abdomen/Pelvis CT 11/09/21 12:33 IMPRESSION: Suggestion of several hepatic masses; differential diagnosis includes metastases, hemangiomas, abscess. Consider hepatic MRI. Abdomen MRI 11/10/21 07:19 IMPRESSION: 1. Pancreatic mass, consistent with primary adenocarcinoma. 2. Liver masses, consistent with metastatic disease.
[2021-11-11] MEDS: HYDROcodone/acetaminophen (*CRX) 5-325 MG TABLET 1 TAB PO ×2 (13:32→20:01)
[2021-11-11 14:00] VITALS: BP 117/56; PULSE 77; RESP 18; TEMP 36.9; O2SAT 100
--- NOTE | 2021-11-11 16:00 | PM.IMPN ---
Progress Note: A&P Assessment and Plan (1) Pancreatic cancer metastasized to liver: Code(s): C25.9 - Malignant neoplasm of pancreas, unspecified; C78.7 - Secondary malignant neoplasm of liver and intrahepatic bile duct Status: Suspected Assessment and Plan: Suspected. Patient presented with abdominal pain ongoing intermittently the past 2-3 months Abdominal MRI revealed pancreatic mass consistent with primary adenocarcinoma with liver masses consistent with metastatic disease Ultrasound-guided liver biopsy completed on 11/10/21, results pending CA 19-9 pending Lipase and liver enzymes within normal limits Seen in consultation by gastroenterology and oncology. Will plan to follow up with oncology to review biopsy results (2) Abdominal pain: Code(s): R10.9 - Unspecified abdominal pain Status: Acute Assessment and Plan: Likely secondary to above Pain improved with morphine. Patient would like to avoid morphine and transition to oral analgesics only to find suitable regimen to take at home Some improvement with [place] but not significant Continue morphine as needed during admission for severe pain Will trial toradol and add dicyclomine for abdominal cramping. (3) Ileus: Code(s): K56.7 - Ileus, unspecified Status: Acute Assessment and Plan: Patient complains of mild bloating. Outpatient KUB completed on 11/09 which showed mildly dilated small bowel in the mid abdomen Abdominal MRI shows dilated small bowel without focal transition point consistent with adynamic ileus Seems resolved. Tolerating diet. Passing flatus. Supportive care. Encourage ambulation. Daily colace and miralax (4) HTN (hypertension): Code(s): I10 - Essential (primary) hypertension Status: Acute Assessment and Plan: Blood pressures reviewed and have been stable. Last BP 117/56 Continue home amlodipine and losartan-hydrochlorothiazide (5) GERD (gastroesophageal reflux disease): Code(s): K21.9 - Gastro-esophageal reflux disease without esophagitis Status: Acute Assessment and Plan: No acute issues at this time Continue pantoprazole (6) Hyperlipidemia: Code(s): E78.5 - Hyperlipidemia, unspecified Status: Acute Assessment and Plan: Not on statin therapy Subjective Date/time seen: 11/11/21 16:00 Interval history: Date of service: 11/11/2021 Jason Krishnamurthy is a 65-year-old male with a history of hypertension, hyperlipidemia, GERD who is seen in follow-up for pancreatic and liver mass. He feels okay today. Continues to endorse abdominal discomfort and tightness. He was able to tolerate a solid diet today. He is passing gas but has not had a bowel movement. He denies nausea or vomiting. No fevers or chills. No shortness breath, cough, chest pain. Review of Systems Review of Systems: All systems reviewed & are unremarkable except as noted in HPI and below Exam Narrative: General: Well-nourished, well-appearing 65-year-old male, sitting up in bed, comfortable, NARD Neuro: awake, alert and oriented x4, speech clear, no focal neuro deficits noted HEENMT: normocephalic, atraumatic, EOMI, sclerae anicteric Respiratory: clear to auscultation bilaterally, nonlabored breathing Cardio: regular rate, regular rhythm with S1-S2 Abdomen: Mildly distended, normoactive bowel sounds, soft, nontender to palpation Extremities: no edema, erythema, or tenderness to palpation, DP pulses 2+ bilaterally Skin: no rashes or lesions, warm and dry Psych: Pleasant and cooperative, appropriate mood and affect, judgment and insight intact Objective Data Vital Signs Vital Signs: Vital Signs - 24 hr 11/10/21 20:41 11/11/21 06:00 11/11/21 08:00 Temperature 98.8 F 97.4 F L Pulse Rate 75 66 Respiratory Rate 20 20 Blood Pressure 114/66 133/64 Pulse Oximetry 98 100 Oxygen Delivery Room Air 11/11/21 14:00 Temp
[2021-11-11] MEDS: DICYCLOMINE HCL 10 MG CAPSULE 20 MG PO (17:56)
[2021-11-11] MEDS: KETOROLAC 10 MG TABLET PO (17:56)
[2021-11-11 22:00] VITALS: BP 130/66; PULSE 71; RESP 18; TEMP 36.4; O2SAT 100
[2021-11-12] MEDS: MORPHINE SULFATE (*CRX) 4 MG/ML INJ IV PUSH (01:48)
[2021-11-12] MEDS: KETOROLAC 10 MG TABLET PO (01:49)
[2021-11-12 05:34] VITALS: BP 152/73; PULSE 65; RESP 19; TEMP 36.1; O2SAT 97
[2021-11-12] MEDS: oxyCODONE/ACETAMINOPHEN (*CRX) 5-325 MG TABLET 1 TABLET PO ×2 (08:51→12:38)
[2021-11-12] MEDS: THERAPEUTIC MULTIVITAMINS/MINERALS TAB (*BKC) 1 TABLET PO (08:52)
[2021-11-12] MEDS: hydroCHLOROthiazide 12.5 MG CAPSULE PO (08:52)
[2021-11-12] MEDS: PANTOPRAZOLE 40 MG TABLET PO (08:52)
[2021-11-12] MEDS: amLODIPine BESYLATE 5 MG TABLET 10 MG PO (08:52)
[2021-11-12] MEDS: DOCUSATE SODIUM 100 MG CAPSULE PO (08:52)
[2021-11-12] MEDS: LOSARTAN POTASSIUM 100 MG TABLET PO (08:53)
[2021-11-12] MEDS: DICYCLOMINE HCL 10 MG CAPSULE 20 MG PO (08:53)
--- NOTE | 2021-11-12 09:28 | WPDGIPROGNO ---
Progress Note: A&P Assessment and Plan (1) Pancreatic cancer metastasized to liver: Code(s): C25.9 - Malignant neoplasm of pancreas, unspecified; C78.7 - Secondary malignant neoplasm of liver and intrahepatic bile duct Status: Suspected Assessment and Plan: Final histology pending. Agree with advancing diet. Follow-up with Oncology as scheduled. No additional GI intervention planned at this time. (2) Anemia: Code(s): D64.9 - Anemia, unspecified Status: Acute Subjective Date/time seen: 11/12/21 09:28 Patient alert comfortable this morning. Denies any significant abdominal pain. Lab reports and biopsy results pending. Review of Systems Review of Systems: Review of systems noncontributory. Exam Narrative: Abdomen bowel sounds present soft nontender with no organomegaly p. lungs are clear. Heart without murmur. Objective Data Vital Signs Vital Signs: Vital Signs - 24 hr 11/11/21 14:00 11/11/21 20:00 11/11/21 22:00 Temperature 98.4 F 97.6 F Pulse Rate 77 71 Respiratory Rate 18 18 Blood Pressure 117/56 L 130/66 Pulse Oximetry 100 100 Oxygen Delivery Room Air 11/12/21 05:34 Temperature 97 F L Pulse Rate 65 Respiratory Rate 19 Blood Pressure 152/73 H Pulse Oximetry 97 Oxygen Delivery Intake/Output Intake/Output: Intake & Output 11/09/21 11/10/21 11/11/21 11/12/21 23:59 23:59 23:59 23:59 Intake Total 2650 3850 2560 550 Output Total 3700 450 Balance 2650 3850 -1140 100 Meds/Results Medications: Active Medications Generic Name Dose Route Start Last Admin Trade Name Freq PRN Reason Stop Dose Admin Acetaminophen 650 mg 11/11/21 12:08 Acetaminophen 325 Mg Tablet PO Q4H PRN Pain 1-3 Amlodipine Besylate 10 mg 11/10/21 09:00 11/12/21 08:52 Amlodipine Besylate 5 Mg Tablet PO 10 mg DAILY LENKA Administration Dicyclomine HCl 20 mg 11/11/21 16:09 11/12/21 08:53 Dicyclomine Hcl 10 Mg Capsule PO 20 mg QID PRN Administration Abdominal Cramping Docusate Sodium 100 mg 11/10/21 21:00 11/12/21 08:52 Docusate Sodium 100 Mg Capsule PO 100 mg Q12HR LENKA Administration Hydrochlorothiazide 12.5 mg 11/10/21 09:00 11/12/21 08:52 Hydrochlorothiazide 12.5 Mg Capsule PO 12.5 mg QAM LENKA Administration Losartan Potassium 100 mg 11/12/21 09:00 11/12/21 08:53 Losartan Potassium 100 Mg Tablet PO 12/10/21 08:59 100 mg DAILY LENKA Administration Morphine Sulfate 4 mg 11/09/21 14:04 11/12/21 01:48 Morphine Sulfate (*Crx) 4 Mg/Ml Inj IV PUSH 4 mg Q2H PRN Administration Pain Rated 7-10 Multivitamins/Calcium 1 tablet 11/10/21 09:00 11/12/21 08:52 Therapeutic Multivitamins/Minerals Tab (*Bkc) PO 1 tablet DAILY LENKA Administration Ondansetron HCl 4 mg 11/09/21 14:04 Ondansetron Inj 4 Mg/2 Ml Vial IV PUSH Q4H PRN Nausea Oxycodone/Acetaminophen 1 tablet 11/12/21 07:43 11/12/21 08:51 Oxycodone/Acetaminophen (*Crx) 5-325 Mg Tablet PO 1 tablet Q4H PRN Administration Pain Rated 7-10 Pantoprazole Sodium 40 mg 11/10/21 09:00 11/12/21 08:52 Pantoprazole 40 Mg Tablet PO 40 mg Q12HR LENKA Administration Polyethylene Glycol 17 gm 11/12/21 09:00 11/12/21 08:53 Polyethylene Glycol 3350 17 Gm Powd.Pack PO Not Given QAM [facility] Radiology Results: ITS Impressions Abdomen/Pelvis CT 11/09/21 12:33 IMPRESSION: Suggestion of several hepatic masses; differential diagnosis includes metastases, hemangiomas, abscess. Consider hepatic MRI. Abdomen MRI 11/10/21 07:19 IMPRESSION: 1. Pancreatic mass, consistent with primary adenocarcinoma. 2. Liver masses, consistent with metastatic disease. Ultrasound-guided core needle biopsy is recommended. 3. Dilated small bowel without focal transition point, consistent with adynamic ileus. Liver Biopsy Ultrasound 11/10/21 14:18 IMPRESSION: 1. Ultrasound-guided core needle biopsy of a li
--- NOTE | 2021-11-13 07:18 | PM.DS ---
DS: Admitting Diagnosis Discharge Date 11/12/21 Admitting Diagnosis Abdominal pain DS: Discharge Diagnosis Discharge Diagnosis (1) Pancreatic cancer metastasized to liver: Code(s): C25.9 - Malignant neoplasm of pancreas, unspecified; C78.7 - Secondary malignant neoplasm of liver and intrahepatic bile duct Status: Suspected Assessment and Plan: Suspected. Patient presented with abdominal pain ongoing intermittently the past 2-3 months Abdominal MRI revealed pancreatic mass consistent with primary adenocarcinoma with liver masses consistent with metastatic disease Ultrasound-guided liver biopsy completed on 11/10/21, results pending CA 19-9 pending Lipase and liver enzymes within normal limits Seen in consultation by gastroenterology and oncology. Will plan to follow up with oncology promptly as an outpatient to review biopsy results (2) Abdominal pain: Code(s): R10.9 - Unspecified abdominal pain Status: Acute Assessment and Plan: Likely secondary to above Patient had symptomatic improvement with dicyclomine and Percocet. Continue as needed for pain control. Initiated on bowel regimen with addition of narcotics. (3) Ileus: Code(s): K56.7 - Ileus, unspecified Status: Acute Assessment and Plan: Resolved. Patient complained of mild bloating. Outpatient KUB completed on 11/09 which showed mildly dilated small bowel in the mid abdomen Abdominal MRI shows dilated small bowel without focal transition point consistent with adynamic ileus This resolved and patient was passing flatus and was able to tolerate a regular diet Supportive care provided Encourage ambulation. Daily colace and miralax (4) HTN (hypertension): Code(s): I10 - Essential (primary) hypertension Status: Acute Assessment and Plan: Blood pressures reviewed and were stable. Continue home amlodipine and losartan-hydrochlorothiazide (5) GERD (gastroesophageal reflux disease): Code(s): K21.9 - Gastro-esophageal reflux disease without esophagitis Status: Acute Assessment and Plan: No acute issues Continue pantoprazole (6) Hyperlipidemia: Code(s): E78.5 - Hyperlipidemia, unspecified Status: Acute Assessment and Plan: Not on statin therapy DS: Summary Hospital Course Hospital Course: Date of admission: 11/09/2021 Date of discharge: 11/12/2021 Jason Krishnamurthy is a 65-year-old male with a history of hypertension, hyperlipidemia, GERD who presented to the emergency department on 11/09/2021 with complaints of abdominal distension and postprandial abdominal pain. Presentation to ED, his vital signs were stable, he was afebrile, laboratory workup generally unremarkable with only mild elevation of total bilirubin at 1.6, CT of the abdomen/pelvis showed several hepatic masses. He was admitted to the hospitalist service for further evaluation and management was seen in consultation by Gastroenterology and Oncology. MRI demonstrated a pancreatic mass concerning for primary adenocarcinoma. Underwent liver biopsy and will follow-up with Oncology to review results. Patient eventually able to achieve adequate pain control with Percocet and dicyclomine which she will continue as an outpatient. He was able to tolerate his diet. He was feeling improved and requested discharge home. Given overall improvement, determined to no longer require inpatient care and was discharged in hemodynamically stable condition on 11/12/2021. Status at Discharge Functional status at discharge: independent ambulation Time Spent with Patient Time attestation: Total time spent providing and/or coordinating discharge services: 43 minutes Time spent: Greater than 30 minutes Exam Narrative: General: Well-nourished, well-appearing 65-year-old male, sitting up in bed, comfortable, NARD Neuro: awake, alert and oriented x4, speech clear, no focal neuro de
[2021-11-13 13:38] LABS: CA 19-9 255 U/mL (<34)
== END 2021-11-12 13:05 | disposition home or self-care (01) | DRG 436 ==
LOC: ANHED 14:10 → ANH3MEDSUR 14:59
PROVIDERS: Nurse Practitioner; Admitting Provider Chiropractor; Emergency Provider Emergency Medicine; PCP Internal Medicine; Visit Provider Physician Assistant
DX: C25.9 Malignant neoplasm of pancreas, unspecified (principal); C78.7 Secondary malignant neoplasm of liver and intrahepatic bile duct; K56.7 Ileus, unspecified; K21.9 Gastro-esophageal reflux disease without esophagitis; I10 Essential (primary) hypertension; E78.5 Hyperlipidemia, unspecified; D64.9 Anemia, unspecified; E66.9 Obesity, unspecified; Z68.35 Body mass index [BMI] 35.0-35.9, adult; Z80.0 Family history of malignant neoplasm of digestive organs; Z80.8 Family history of malignant neoplasm of other organs or systems; Z98.1 Arthrodesis status; Z98.890 Other specified postprocedural states
CPT/HCPCS: 36415; 47000; 74018; 74177; 74183; 76942; 80053; 81003; 82728; 83605; 83615; 83690; 83735; 84439; 84443; 84480; 85025; 85027; 85055; 85610; 85730; 86140; 86301; 88307; 96361; 96365; 96375; 96376; 99285; A9270; A9577; G0378; J0131; J2270; J2405; J7030; J7120; Q9967

== ENCOUNTER 2021-11-20 08:08 | Outpatient (CLI) | payer MEDICARE, SELFPAY ==
--- NOTE | ~2021-11-20 | CT_ITS ---
EXAMINATION:CT diagnostic chest w con DATE: 11/20/2021 08:32 INDICATION: Malignant neoplasm of head of pancreas. TECHNIQUE: Computed tomography (CT) of the chest was performed with 75 mL Omnipaque 350 intravenous c ontrast. Automated exposure control and iterative reconstruction technique were employed. The dose-le ngth product (DLP) was 640.07 mGy-cm. COMPARISON: CT abdomen and pelvis 11/09/2021 FINDINGS: There is minimal atelectasis bilaterally. Calcified right lung nodules and calcified right hilar lymph nodes are consistent with old granulomatous disease. There are two 3 mm nodules in left u pper lobe. There is a 3 mm nodule in right middle lobe. No pleural effusion. The heart size is normal . No pericardial effusion. Partially visualized is a mass in the head of the pancreas. There is a 4.0 cm mass in right hepatic lobe. Calcifications in the spleen are consistent with old granulomatous di sease. There are bridging endplate osteophytes at multiple levels in the spine, consistent with diffu se idiopathic skeletal hyperostosis (DISH). IMPRESSION: 1. Pulmonary nodules measuring up to 3 mm, which may be granulomatous disease or metastatic disease. 2. Partially visualized mass in the head of the pancreas, consistent with primary adenocarcinoma. 3. Liver mass, consistent with metastatic disease. Reviewed, dictated and finalized at location A. IMPRESSION: 1. Pulmonary nodules measuring up to 3 mm, which may be granulomatous disease o r metastatic disease. 2. Partially visualized mass in the head of the pancreas, consistent with prima ry adenocarcinoma. 3. Liver mass, consistent with metastatic disease.
[2021-11-20 08:29] LABS: Estimated Glomerular Filt Rate > 60
== END 2021-11-20 08:09 | disposition home or self-care (01) ==
PROVIDERS: PCP Internal Medicine; Visit Provider Internal Medicine Hematology & Oncology
DX: C25.0 Malignant neoplasm of head of pancreas (principal); R91.8 Other nonspecific abnormal finding of lung field; K76.9 Liver disease, unspecified
CPT/HCPCS: 71260; Q9967

== ENCOUNTER 2021-11-24 00:41 | Day surgery (SDC) | payer MEDICARE, SELFPAY ==
[2021-11-21 14:34] VITALS: BMI 35.8
--- NOTE | 2021-11-21 14:42 | PC.NURSE ---
Report to the Outpatient Waiting Room, entrance under the green pavilion located off [facility], at time 0630 on date 11/24/21. OR Time: 0830. Time changes happen often and if your time is changed the preop area will call you the afternoon before. - You and your visitor will be asked to self-screen and do not enter if you have any COVID symptoms. - Only one visitor and NO children visitors are allowed at this time. - The patient visitor is requested to leave or wait in car when not with patient due to restrictions. - A mask is required within the hospital. Patients may have clear liquids (water, carbonated beverages, clear teas, apple juice) until 3 hours prior to surgery with a maximum of 20 ounces. - No food from midnight until time of surgery Take the following medications with a SIP of water the morning of surgery: AMLODIPINE, PAIN PILL IF NEEDED Medications to discontinue per physician: VITAMINS Date to take last dose: 11/21/21 Please no make-up, nail mongolian, hairspray, perfume, deodorant, or body powder the day of surgery. No jewelry (including any body piercings) or valuables the day of surgery, leave them at home. Please take a shower or bath the night before, or the morning of, surgery with an antibacterial soap. Wear comfortable, loose fitting clothing. - Jewelry must be removed prior to entering the operating room. Rings and piercings that are not removed may be cut off. - The hospital will not accept responsibility for valuables. - Please leave all valuables, including medications, at home the day of surgery. If you are going home after surgery, a licensed city driver must drive you home. - NO public transportation without another adult. - We recommend that an adult stay with you for 24 hours following discharge. - We also recommend that you do not drive, make important decision, drink alcoholic beverages, or take any drugs that were not prescribed by your health care provider for at least 24 hours after your discharge time. Follow any additional instructions given to you from your surgeon. If you or anyone in your household have experienced Covid symptoms in the past week, please notify your surgeon or the nurse liaison at the phone number below for possible testing. Telephone instructions given to PT - LAUREL GORDON and asked if any additional questions and then verbalized understanding. Patient advised to call surgeon office or pre surgery nurse liaison [phone] if any additional questions.
--- NOTE | 2021-11-23 20:29 | PM.HPGS ---
History of Present Illness History of Present Illness Consent: Risks, benefits, and alternatives of placement a Port-A-Cath have been discussed and questions answered. Patient agrees to proceed with procedure. Chief complaint: malig neoplasm head of pancreas Narrative: Jason Krishnamurthy is a 65 year old male with a history of hyperlipidemia, HTN, GERD s/p Sue Fundoplication in 1998 who had EGD earlier this year c/o GERD symptoms and it was unremarkable.He then had a colonoscopy with a small polyp removed. He then went back to see His GI physcian in the office because of 2-3 months of bloating associated with pain in left abdomen. then had acute worsening of his symptoms so is asked to go the ED. Subsequently he was admitted to [facility] in early November and a CT scan showed liver lesions and finally MRI liver was obtained which showed pancreatic mass with possible liver mets. Denies weight loss, jaundice, nausea or vomiting. Liver enzymes normal, hb 10. Since then he has had a liver biopsy in Radiology and has seen Dr. Esquivel as an outpatient for further planning. Today he is presenting for placement of Port-A-Cath to be used to begin chemotherapy. Review of Systems Constitutional: Constitutional: Reports no additional constitutional complaints, Reports fatigue and Denies malaise Eyes: Eyes: Denies change in vision and Denies loss of vision ENT: Reports Normal hearing present, Denies change in voice, Denies dizziness, Denies hoarseness and Denies sore throat Cardiovascular: Cardiovascular: Denies chest pain, Denies leg edema and Denies dyspnea Comments: He has a history of hyperlipidemia hypertension. Respiratory: Respiratory: Denies cough, Denies dyspnea and Denies wheezing Gastrointestinal: Gastrointestinal: Denies hematochezia and Denies change in bowel habits Comments: History of GERD and recently diagnosed metastatic pancreatic cancer. Genitourinary: Genitourinary: Denies urinary frequency and Denies urinary incontinence Neurologic: Reports Normal hearing present, Denies confusion, Denies dizziness, Denies loss of vision, Denies memory loss and Denies seizure-like activity Psychiatric: Psychiatric: Denies confusion, Denies depression and Denies memory loss Endocrine: Endocrine: Denies cold intolerance and Reports fatigue Hematologic/Lymphatic: Hematologic/Lymphatic: Denies easy bleeding and Denies easy bruising Allergic/Immunologic: Allergic/Immunologic: Denies wheezing PMFSH Past Medical History Medical History Anemia Bloating Encounter for screening colonoscopy GERD (gastroesophageal reflux disease) HTN (hypertension) Hyperlipidemia Low back pain Obesity (BMI 30-39.9) Pancreatic cancer metastasized to liver Surgical History Surgical History H/O spinal fusion History of repair of hiatal hernia Family History Family History Father Heart disease Mother Heart disease Social History Social History Social History: The patient lives at home with his and he has a stepson. 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 He denies any alcohol marijuana or illicit drugs. His is the durable power policy specialist for healthcare. Code status full code Smoking status: Never smoker Second hand tobacco smoke exposure: No Alcohol intake: never Alcohol use details: occasional Substance use: never Substance use type: does not use Living arrangements: with family Spiritual care concerns: No Meds Home Medications and Allergies Home Medications Medication Instructions Recorded Confirmed Type amlodipine 10 mg tablet 10 mg PO DAILY 06/10/20 11/21/21 History losartan 50 mg-hydrochlorothiazide 1 tablet PO DAILY 07/24/21 11/21/21 History 12.5 mg tablet omeprazole 40 mg capsulemacho
--- NOTE | ~2021-11-24 | XR_ITS ---
EXAMINATION: XR chest port-a-cath/central INDICATION: Port-A-Cath insertion TECHNIQUE: Portable AP chest at 0929 hours COMPARISON: 11/14/2020 FINDINGS: A right internal jugular Port-A-Cath has been inserted which ends with its tip at the super ior cavoatrial junction. No pleural effusion or pneumothorax. The lungs are free of acute opacities. No pleural effusion or pneumothorax. The cardiomediastinal silhouette is normal. IMPRESSION: 1. Right internal jugular Port-A-Cath ending with its tip in the distal superior vena cava. Reviewed, dictated and finalized at location B. IMPRESSION: 1. Right internal jugular Port-A-Cath ending with its tip in the distal superio r vena cava.
--- NOTE | ~2021-11-24 | XR_ITS ---
EXAMINATION: XR fl guide central line place INDICATION: Port-A-Cath insertion TECHNIQUE: Two intraoperative fluoroscopic images are submitted for review. Total fluoroscopic time w as 24.5 seconds. COMPARISON: None available FINDINGS: A right internal jugular catheter ends with its tip in the distal superior vena cava. Pleas e refer to procedure note for full details. IMPRESSION: 1. Right internal jugular catheter ending with its tip in the distal superior vena cava. Please refer to procedure note for full details. Reviewed, dictated and finalized at location B. IMPRESSION: 1. Right internal jugular catheter ending with its tip in the distal superior v gregoria cava. Please refer to procedure note for full details.
[2021-11-24 06:40] VITALS: BP 173/83; PULSE 95; RESP 16; TEMP 36.5; O2SAT 96
[2021-11-24] MEDS: LACTATED RINGERS 1,000 ML 30 ML IV CONT (07:10)
[2021-11-24] MEDS: KETOROLAC 15 MG/ML VIAL (*BKC) IV PUSH (07:11)
--- NOTE | 2021-11-24 07:45 | WPDANESEPPF ---
Anes - Initial Pre Proc Eval Procedure: Operation Date: 11/24/21 08:30 Proposed Procedures p Insertion Victor Hugo Cath - Juan Nunez MD Date/Time: 11/24/21 07:45 Surgeon: Juan Nunez MD Pre Op Diagnosis: malig neoplasm head of pancreas Patient Data Age: 65 Gender: M Height: 1.98 m Weight: 138.2 kg Last Vital Signs Temp 36.5 C 11/24/21 06:40 Pulse 95 11/24/21 06:40 Resp 16 11/24/21 06:40 BP 173/83 H 11/24/21 06:40 Pulse Ox 96 11/24/21 06:40 O2 Del Method Room Air 11/24/21 06:40 Allergies Allergy/AdvReac Type Severity Reaction Status Date / Time No Known Allergies Allergy Verified 11/24/21 06:53 Home Medications Medication Instructions Recorded Confirmed Type amlodipine 10 mg tablet 10 mg PO DAILY 06/10/20 11/21/21 History losartan 50 mg-hydrochlorothiazide 1 tablet PO DAILY 07/24/21 11/21/21 History 12.5 mg tablet omeprazole 40 mg capsule,delayed 40 mg PO DAILY 07/24/21 11/21/21 History release multivitamin,tx-minerals 1 cap PO DAILY 11/09/21 11/21/21 History (Multi-Vitamin HP/Minerals capsule) potassium chloride 10 mEq 10 meq PO DAILY 11/09/21 11/21/21 History tablet,extended release dicyclomine 10 mg capsule 20 mg PO QID PRN Abdominal 11/12/21 11/21/21 Rx Cramping #60 caps docusate sodium 100 mg capsule 100 mg PO Q12HR #60 caps 11/12/21 11/21/21 Rx oxycodone-acetaminophen 5 mg-325 1 tablet PO Q4-6H PRN moderate to 11/12/21 11/21/21 Rx mg tablet severe pain #60 tabs polyethylene glycol 3350 17 gram 17 g PO QAM #30 ea 11/12/21 11/21/21 Rx oral powder packet (Miralax) Patient hx anesthesia problems: none Family hx anesthesia problems: none Results Review: All pre-operative results and documents have been reviewed as part of the pre-operative evaluation. [facility] Past Medical History Medical History Anemia Bloating Encounter for screening colonoscopy GERD (gastroesophageal reflux disease) HTN (hypertension) Hyperlipidemia Low back pain Obesity (BMI 30-39.9) Pancreatic cancer metastasized to liver Surgical History Surgical History H/O spinal fusion History of repair of hiatal hernia Family History Family History Father Heart disease Mother Heart disease Social History Social History Social History: The patient lives at home with his and he has a stepson. 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 He denies any alcohol marijuana or illicit drugs. His is the durable power ip attorney for healthcare. Code status full code Smoking status: Never smoker Second hand tobacco smoke exposure: No Alcohol intake: never Alcohol use details: occasional Substance use: never Substance use type: does not use Living arrangements: with family Spiritual care concerns: No Anes - Eval Final PreProcedure Day of Procedure 11/24/21 07:45 Patient weight: obese Heart: regular rate and rhythm Lungs: clear to auscultation Airway: Mallampati scale class II Neurological: alert and oriented Last oral intake: >/= 8 hours ASA classification: III Emergent: no Anesthetic plan: proceed Anesthesia type and monitoring: general GIVS and standard monitoring Results Review: All pre-operative results and documents have been reviewed as part of the pre-operative evaluation. Informed Consent: The patient's anesthetic plan and its attendant risks and benefits were discussed with the patient/family/POA. Questions were solicited and answers provided to the satisfaction of the patient/family/POA.
--- NOTE | 2021-11-24 08:17 | WPDHPUPDATE1 ---
History and Physical Update Update Date/Time: 11/24/21 08:17 History and Physical has been reviewed, including an updated exam of the patient. There are NO changes in the patient's condition. Risks, benefits, and alternatives have been discussed and questions answered. Patient agrees to proceed with procedure.
[2021-11-24] MEDS: ceFAZolin 3 GM/D5W 100 ML 100 ML IVPB (08:24)
[2021-11-24] MEDS: HEPARIN SODIUM 5,000 UNITS/ML VIAL 5000 UNITS IRRIGATION (08:49)
--- NOTE | 2021-11-24 09:15 | W.PM.PROC2 ---
Procedure Note - Detailed Date of Procedure 11/24/21 Pre-op Diagnosis 1. malignant neoplasm body of pancreas with proven liver Mets 2. Need for permanent central venous access Post-op Diagnosis Same Procedure Performed 1. Placement of Victor Hugo-cath. 2. Use of US for vascular access site selection and visualization of needle access to vein. Surgeon Juan Nunez MD Architectural Engineer Pipe DIAZ.OR commercial lending assistant Anesthesia Local (with 0.5% Marcaine with epinepherine) and Other (GIVS) Indications Patient was recently discovered to have metastatic pancreatic cancer to the liver with the finding of a mass in the pancreas. He is working with Dr. Esquivel for palliative chemotherapy. He is in need of permanent central venous access. Findings Normal vascular anatomy of the right neck. Less less than 1 cm abnormal skin lesion anterior chest (suspected basal cell carcinoma). Description of Procedure Patient was seen and marked in the pre-op area prior to coming to the OR. Patient was brought to the operating room. Patient was placed supine on the operating table and general IV sedation was induced. The nurse luggage repairer provided And continuous monitoring, oxygen, and IV sedation or general anesthesia with IV sedation as was appropriate for the patient's condition. See anesthesia notes). Patient's head was carefully turned to the left side while in the supine position and the patient's entire neck and anterior chest on both sides was prepped and draped in the usual sterile fashion. Following this the appropriate time-out was completed confirming procedure and patient. We confirmed that all the needed equipment was present in the room including the vascular ultrasound probe in machine. Following this the ultrasound probe was draped into the field and using the probe we carefully identified the carotid artery and jugular vein on the right neck. I then saved an image of the vascular anatomy of the neck, which documented the selected vessels patency and transferred it from the ultrasound machine to the [employer] chart. I marked the skin directly over the right internal jugular vein. I then used an 11 blade knife to make a small cindy in the skin. Following this, using the continuous ultrasound guidance, a Cook needle was placed through the skin incision and on into this vein. I then was able to draw back good dark blood. Once this was completed a guidewire using a J-tip was advanced through the needle and then the needle and the guidewire cover were withdrawn. C-arm fluoroscopy was used to confirm that the guidewire was nicely in the central venous system. Once this was confirmed with the C - arm, I preceded on by making the pocket for the port on the patient's anterior right chest approximately 3 centimeters below the clavicle overlying the chest wall. Local anesthetic was infiltrated into the skin where there was a transverse incision marked out. Incision was made and we made a pocket inferior to the incision with just a little dissection superior. The Smart port was tried in the pocket and seemed to fit well. Following this the catheter which had been placed on a tunneling device was tunneled from the port site on the anterior right chest up to the right neck where the small incision had been made slightly larger with an #11 blade knife. Then the catheter was pulled through so that we would have 16 centimeters to put into the central venous system once the dilation took place. Following this we placed the dilator and sheath over the guidewire in the jugular vein and carefully dilated the tract into the central venous system. The guidewire and dilator were then removed, carefully covering the end of the sheath to prevent air embolus. The end of the catheter which had been removed from the tunneling device and the tip checked was then inserted into the sheath and into the neck. I then carefully pulled the 2 arms of the tear-away sheath away as the catalog library assistant held the catheter
[2021-11-24 09:17] VITALS: BP 145/75; PULSE 92; RESP 16; O2SAT 94
[2021-11-24 09:47] VITALS: BP 147/75; PULSE 87; RESP 16
[2021-11-24] MEDS: oxyCODONE HCL (*CRX) 5 MG TAB IR PO (09:49)
[2021-11-24 10:15] VITALS: BP 143/69; PULSE 76; RESP 16
== END 2021-11-24 10:27 | disposition home or self-care (01) ==
PROVIDERS: PCP Internal Medicine; Visit Provider Surgery
PROC: (CPT 36561; principal; 2021-11-24 08:30)
DX: C25.9 Malignant neoplasm of pancreas, unspecified (principal); C78.7 Secondary malignant neoplasm of liver and intrahepatic bile duct; I10 Essential (primary) hypertension; E78.5 Hyperlipidemia, unspecified; K21.9 Gastro-esophageal reflux disease without esophagitis; D64.9 Anemia, unspecified; E66.9 Obesity, unspecified; Z68.35 Body mass index [BMI] 35.0-35.9, adult; Z98.1 Arthrodesis status
CPT/HCPCS: 36561; 77001; A9270; C1788; J0690; J1644; J1885; J2704; J3010; J7030; J7120

== ENCOUNTER 2021-12-23 12:29 | Inpatient (IN) | payer MEDICARE, SELFPAY ==
[2021-12-23] VITALS (14 sets, daily range): BP systolic 125–149; BP diastolic 66–84; PULSE 74–97; RESP 12–18; TEMP 36.2–36.7; O2SAT 94–100; BMI 33.2; BMI 33.5
--- NOTE | ~2021-12-23 | CT_ITS ---
EXAMINATION: CT abdomen pelvis w con DATE: 12/23/2021 16:36 INDICATION: Pancreatic cancer with liver mets and lower abdomi TECHNIQUE: Computed tomography (CT) of the abdomen and pelvis was performed with 100 mL Omnipaque-350 intravenous contrast. Automated exposure control and iterative reconstruction technique were employe d. The dose-length product was 1642.98 mGy-cm. COMPARISON: CT 11/09/2021, MR abdomen 11/10/2021. FINDINGS: Lower thorax: Right lower lobe granulomas. Liver: Enlarged. Multiple rim-enhancing hypodensities in the right lobe. Generalized right lobe hypoe nhancement which may be secondary to geographic fatty infiltration or portal flow abnormalities. Uppe r abdominal varices. Biliary/Gallbladder: Gallbladder is normal. No bile duct dilation. Pancreas: 4.1 cm hypoenhancing lesion in the pancreatic body which severely narrows and encases the S MV/portal vein confluence. The superior mesenteric artery is encased and mildly narrowed. Encasement of the distal celiac axis and bifurcation of the splenic and hepatic arteries, without narrowing. Spleen: Enlarged with granulomatous calcifications. Adrenals:No mass. Kidneys: No mass, stone, or hydronephrosis. GI tract: Multiple loops of dilated small bowel in the left abdomen, without focal transition point. Mildly dilated loops of ileum in the right lower quadrant with swirling of the mesentery. The cecum i s mobile, positioned in the midabdomen. Normal-appearing appendiceal stump. Mesentery/Peritoneum: No ascites, mass, or free air. Retroperitoneum: No mass. Atherosclerotic abdominal aortic and/or arterial calcifications. Pelvis: Bladder wall thickening likely from outlet compromise from prostatomegaly. Soft Tissues: Soft tissues and body wall unremarkable. Bones: No acute osseous finding. Uncomplicated posterior lumbar fusion hardware. IMPRESSION: Dilated small bowel loops may represent ileus versus early obstruction, possibly from a right lower q uadrant internal hernia or involvement with the mobile cecum. No other acute abdominopelvic process. Pancreatic carcinoma which severely narrows the SMV/splenic confluence, causing portal hypertension. Hepatic metastases. Reviewed, dictated and finalized at location K. IMPRESSION: Dilated small bowel loops may represent ileus versus early obstruction, possibl y from a right lower quadrant internal hernia or involvement with the mobile ce cum. No other acute abdominopelvic process. Pancreatic carcinoma which severely narrows the SMV/splenic confluence, causing portal hypertension. Hepatic metas tases.
--- NOTE | ~2021-12-23 | XR_ITS ---
EXAMINATION: XR abdomen obstructive series DATE: 12/24/2021 08:17 INDICATION: Ileus versus partial small bowel obstruction. TECHNIQUE: Frontal supine and upright views of the abdomen were obtained. COMPARISON: None. FINDINGS: Nasogastric tube tip in proximal side port in the body of the stomach. No free intraperitoneal gas. T here are some gas and small amount of stool scattered throughout the colon. No dilated loops of gas-f illed small bowel to suggest obstruction. Lung bases are clear. Heart size is normal. L3 and L4 pino ectomies with L3-L5 posterior spinal fusion with bilateral vertical myrna and pedicle screw fixation. W ith moderate osteoarthritis at the right hip and bilateral sacroiliac joints and mild osteoarthritis at the left sacroiliac joint. IMPRESSION: 1. No free intraperitoneal gas or dilated gas-filled loops of bowel to suggest obstruction. Reviewed, dictated and finalized at location A.
--- NOTE | ~2021-12-23 | XR_ITS ---
EXAMINATION: XR chest 1V portable Exam Date/Time: 12/23/2021 14:20 CDT HISTORY: Port-A-Cath evaluation, CHEMO X3 DAYS AGO Comparison: 11/24/2021. RESULT: Lines, tubes, and devices: Right chest implanted port terminating at the cavoatrial junction. Lungs and pleura: Clear. Cardiomediastinal silhouette: Stable. Other: No acute osseous or upper abdominal finding. IMPRESSION: No acute cardiopulmonary process. Reviewed, dictated and finalized at location K.
--- NOTE | ~2021-12-23 | XR_ITS ---
EXAMINATION: XR abdomen obstructive series DATE: 12/25/2021 08:30 INDICATION: Dilated small bowel. TECHNIQUE: Upright and supine views of the abdomen on 3 radiographs were obtained. COMPARISON: CT abdomen and pelvis 12/23/2021 FINDINGS: There are no dilated loops of bowel. There is a paucity of stool in the colon. No free intr aperitoneal gas. There are changes of posterior fusion procedure in lumbar spine. IMPRESSION: 1. Normal bowel gas pattern. Reviewed, dictated and finalized at location B.
--- NOTE | ~2021-12-23 | XR_ITS ---
EXAM: XR abdomen NG/feed tube insert DATE: 12/23/2021 20:21 HISTORY: ng tube placement . COMPARISON: CT abdomen and pelvis, same date. FINDINGS: NG tube terminates with the tip and side port over the stomach Clear lung bases. Grossly no rmal bowel gas pattern, the dilated small bowel loops noted in the prior study are not well seen in t his exam most likely persist. IMPRESSION: New NG tube, in good position. Reviewed, dictated and finalized at location K.
[2021-12-23] MEDS: SODIUM CHLORIDE 0.9% IV 1,000 ML 999 ML IV CONT (13:06)
--- NOTE | 2021-12-23 13:06 | ED.NAVMDI ---
HPI - Nausea/Vomiting/Diarrhea General Chief complaint: Nausea/Vomiting/Diarrhea Stated complaint: n/v- cancer patient Time Seen by Provider: 12/23/21 12:36 Source: patient and family Limitations: no limitations History of Present Illness HPI Narrative: 66 years old white female history of stage IV pancreatic cancer with liver metastasis, last second chemotherapy was 4 days ago, has been nauseated, vomiting with increased abdominal pain over the last 4 days. He denies any fever or chills. Related Data Home Medications Medication Instructions Recorded Confirmed amlodipine 10 mg tablet 10 mg PO DAILY 06/10/20 12/20/21 losartan 50 mg-hydrochlorothiazide 1 tablet PO DAILY 07/24/21 12/20/21 12.5 mg tablet omeprazole 40 mg capsule,delayed 40 mg PO DAILY 07/24/21 12/20/21 release multivitamin,tx-minerals 1 cap PO DAILY 11/09/21 12/20/21 (Multi-Vitamin HP/Minerals capsule) potassium chloride 10 mEq 20 meq PO DAILY 11/09/21 12/20/21 tablet,extended release Allergies Allergy/AdvReac Type Severity Reaction Status Date / Time No Known Allergies Allergy Verified 12/23/21 14:30 Review of Systems Review of Systems: All systems reviewed & are unremarkable except as noted in HPI and below PMFSH Past Medical History Medical History Anemia Bloating Encounter for screening colonoscopy GERD (gastroesophageal reflux disease) HTN (hypertension) Hyperlipidemia Low back pain Obesity (BMI 30-39.9) Pancreatic cancer metastasized to liver Surgical History Surgical History H/O spinal fusion History of repair of hiatal hernia Family History Family History Father Heart disease Mother Heart disease Social History Social History Social History: The patient lives at home with his and he has a stepson. 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 He denies any alcohol marijuana or illicit drugs. His is the durable power tax associate attorney for healthcare. Code status full code Smoking status: Never smoker Second hand tobacco smoke exposure: No Alcohol intake: never Alcohol use details: occasional Substance use: never Substance use type: does not use Spiritual care concerns: No Exam Narrative: General appearance: Well-developed, well-nourished Skin: Normal color Head: Normocephalic, nontraumatic Eyes: Clear conjunctiva ENT: Oropharynx normal, ears normal, nose normal Neck: Supple, nontender Chest and respiratory: Airway patent, no respiratory distress, no accessory muscle use Heart: Regular rate/rhythm Abdomen: Soft, diffuse tenderness lower abdomen, no guarding or rebound, no organomegaly, quiet bowel sounds Vascular: Normal peripheral pulses, normal capillary refill. 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 Esquivel Date: 12/23/21 Time: 19:53 Consultation #2: Dr. Nunez Date: 12/23/21 Time: 19:53 Consultation #3: Dr. Carbajal, surgery at [facility] Patient is accepted for transfer, no bed available today Date: 12/23/21 Time: 19:54 Vital Signs Vital signs: Vital Signs Temperature 36.2 C L 12/23/21 12:30 Pulse Rate 97 12/23/21 12:30 Respiratory Rate 17 12/23/21 12:30 Blood Pressure 140/84 12/23/21 12:30 Pulse Oximetry 99 12/23/21 12:30 Temperature 36.2 C L 12/23/21 12:30 Pulse Rate 74 12/23/21 14:31 Respiratory Rate 18 12/23/21 14:31 B
[2021-12-23] MEDS: ONDANSETRON INJ 4 MG/2 ML VIAL IV PUSH ×2 (13:07→23:46)
[2021-12-23 13:11] LABS: Basophils Percent Auto 0.9 % (0.2-1.2); Eosinophils Absolute Auto 0.1 K/mm3 (0-0.3); Eosinophils Percent Auto 4.9 % (0-4.4); Hematocrit 33.9 % (42.0-52.0); Hemoglobin 11.9 g/dL (14.0-18.0); Immature Platelet Fraction Pct 7.2 % (0.9-11.2); Lymphocytes Absolute Auto 1.17 K/mm3 (0.9-3.2); Lymphocytes Percent Auto 52.2 % (18.3-44.2); Mean Corpuscular HGB Conc 35.1 g/dl (32-36); Mean Corpuscular Hemoglobin 29.1 pg (26-34); Mean Corpuscular Volume 82.9 fl (80-100); Mean Platelet Volume 10.5 fl (7.4-10.4); Monocytes Absolute Auto 0.1 K/mm3 (0.1-0.6); Monocytes Percent Auto 3.1 % (2.6-8.5); Neutrophils Absolute Auto 0.9 K/mm3 (1.3-6.7); Neutrophils Percent Auto 38.9 % (45.5-73.1); Platelet Count Result 118 k/mm3 (150-375); Red Blood Count 4.09 M/mm3 (4.6-6.20); Red Cell Distribution Width 13.2 % (11.5-14.5); White Blood Count 2.2 K/mm3 (4.5-10.0)
[2021-12-23] MEDS: ONDANSETRON INJ 4 MG/2 ML VIAL 8 MG IV PUSH (13:15)
[2021-12-23] MEDS: HYDROmorphone HCL INJ (*CRX) 1 MG/ML SYR 0.5 MG IV PUSH ×3 (13:16→22:32)
[2021-12-23 13:23] LABS: Alanine Aminotransferase 32 U/L (6-50); Albumin Level 4.4 g/dL (3.5-5.1); Alkaline Phosphatase 49 U/L (38-126); Anion Gap 11 mmol/L (8-16); Aspartate Amino Transferase 31 U/L (17-59); Bilirubin,Total 2.3 mg/dL (0.2-1.3); Blood Urea Nitrogen 14 mg/dL (9-20); Calcium 9.2 mg/dL (8.4-10.2); Carbon Dioxide 26 mmol/L (22-30); Chloride 95 mmol/L (98-107); Estimated CRCL calculation 133 ml/min; Estimated Glomerular Filt Rate > 60; Glucose 124 mg/dL (65-110); Lipase 71 U/L (23-300); Potassium 3.2 mmol/L (3.4-5.0); Sodium 132 mmol/L (137-145)
[2021-12-23] MEDS: SODIUM CHLORIDE 0.9% IV 2,000 ML 999 ML IV CONT (14:26)
[2021-12-23 15:37] LABS: Add Urine Microscopic? YES; Appearance Urine Clear (Clear); Bilirubin Urine Negative (Negative); Blood Urine Negative (Negative); Color Urine Yellow (Yellow); Glucose Urine UA Negative (Negative); Ketones Urine Trace mg/dL (Negative); Leukocyte Esterase Ur Negative LEU/UL (Negative); Mucus Urine Rare /lpf; Nitrate Urine Negative (Negative); Protein Urine Negative (Negative); RBC Urine 0-2 /hpf (0-2); Specific Grav Ur 1.018 (1.001-1.035); Squamous Epithelial Cell Urine Rare /hpf (Few); WBC Urine 0-3 /hpf
[2021-12-23] MEDS: POTASSIUM CHLORIDE 20 MEQ PACKET (FOR LIQUID) 40 MEQ PO (16:47)
--- NOTE | 2021-12-23 20:19 | PC.NURSE ---
Dr Pacheco verified placement of NG tube after looking at Xray
--- NOTE | 2021-12-23 22:00 | PM.IMHP ---
H&P: HPI History of Present Illness Date/Time: 12/23/21 22:00 Chief Complaint: Abdominal pain, nausea, and vomiting. Narrative: This is a very pleasant 66-year-old male with hypertension, GERD with history of peptic ulcers, and pancreatic cancer who presented to the emergency department from home for evaluation of abdominal pain, nausea, and vomiting. He was diagnosed with pancreas primary adenocarcinoma with metastatic disease to the liver early last month and he had his 2nd chemotherapy treatment between Saturday and Saturday. He seemed to tolerate his initial chemotherapy treatment okay however this 2nd treatment has been much worse. He had something to eat following his initial infusion on Saturday though later that evening he developed nausea which has been unrelenting since that time. He has not really been able to hold down any food or drink and so to he has not been able to hold down his medications. On he started to have increasing pain in the mid to lower abdomen which he describes as a chronic cramping discomfort though on occasion it is sharp and shooting in nature. He also reports abdominal bloating and distension. As he has not been able to hold down food or liquids he has become increasingly weak. CT of the abdomen and pelvis showed dilated small bowel loops representing ileus versus early obstruction and mass effect from the pancreatic tumor on the SMV/splenic confluence. An NG tube has been inserted and he has had about 200 milliliters of output with perhaps a little improvement in his discomfort. He is being admitted to the medical-surgical floor while awaiting transfer to [facility] for consultation with surgery oncology. Review of Systems Review of Systems: Twelve systems were reviewed. He has had chills but no fever. No cold or flu symptoms. No sick contacts. No chest pain or pleuritic pain. No cough or shortness of breath. He denies hematemesis, melena, and hematochezia. He has lost about 35 pounds since early last month. Except as documented, all other systems were reviewed and are negative. [facility] Past Medical History Medical History (Updated 12/23/21 @ 23:31 by Aleida Pang PA-C) Anemia Gastroesophageal reflux disease Hyperlipidemia Hypertension Pancreatic cancer metastasized to liver Surgical History Surgical History (Updated 12/23/21 @ 23:26 by Aleida Pang PA-C) History of repair of hiatal hernia History of spinal fusion Family History Family History Father Heart disease Mother Heart disease Social History Social History (Updated 12/23/21 @ 23:28 by Aleida Pang PA-C) Social History: The patient lives with his in [place]. He has no biological children but does have a stepson. 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 Lifelong nonsmoker. No alcohol or illicit substance abuse. Surrogate medical decision maker: Brandie Krishnamurthy, spouse. Code status: Do not resuscitate. Spiritual care concerns: No Meds Home Medications and Allergies Home Medications Medication Instructions Recorded Confirmed Type amlodipine 10 mg tablet 10 mg PO DAILY 06/10/20 12/23/21 History losartan 50 mg-hydrochlorothiazide 1 tablet PO DAILY 07/24/21 12/23/21 History 12.5 mg tablet omeprazole 40 mg capsule,delayed 40 mg PO DAILY 07/24/21 12/23/21 History release multivitamin,tx-minerals 1 cap PO DAILY 11/09/21 12/23/21 History (Multi-Vitamin HP/Minerals capsule) potassium chloride 10 mEq 20 meq PO DAILY 11/09/21 12/23/21 History tablet,extended release oxycodone-acetaminophen 5 mg-325 1 tablet PO Q4-6H PRN moderate to 11/12/21 12/23/21 Rx mg tablet severe pain #60 tabs Allergies Allergy/AdvReac Type Severity Reaction Status Date / Time No Known Allergies Allergy Verified 12/23/21 14:30 Vital Signs Vital Signs - 24 hr 12/23/21 12:30 12/23/21 14:31 12/23/21 19:20 Temperature 97.2 F L Pulse Rate
--- NOTE | 2021-12-23 22:02 | ADMGEN ---
This patient, Jason Krishnamurthy, was admitted to [address] [facility] Surg Room 303-01. Patient/family oriented to hospital policies and general routines including ID bracelet, bed and alarms, visiting hours, pain management, procedures, bathroom and other care routines, personal items, smoking policy, room service/diet, and visiting hours. Information on how to activate the Rapid Response Team has been discussed. Patient/Family are encouraged to report perceived risks to care and to ask questions if they do not understand what they are told or what they should do.
[2021-12-23] MEDS: LACTATED RINGERS 1,000 ML 150 ML IV CONT (22:50)
[2021-12-23] MEDS: HYDROmorphone HCL INJ (*CRX) 1 MG/ML SYR IV PUSH (23:52)
[2021-12-24] MEDS: HYDROmorphone HCL INJ (*CRX) 1 MG/ML SYR IV PUSH ×7 (04:10→22:00)
[2021-12-24] MEDS: ONDANSETRON INJ 4 MG/2 ML VIAL IV PUSH ×5 (04:11→20:35)
[2021-12-24 05:25] VITALS: BP 132/76; PULSE 73; RESP 18; TEMP 36.8; O2SAT 97
--- NOTE | 2021-12-24 07:43 | PM.IMPN ---
Progress Note: A&P Assessment and Plan (1) Small bowel obstruction: Code(s): K56.609 - Unspecified intestinal obstruction, unspecified as to partial versus complete obstruction Status: Acute Assessment and Plan: CT of the abdomen/pelvis shows ileus versus early small-bowel obstruction. NG tube to low, intermittent suction for decompression. NPO Analgesics as needed for pain: PRN Diluadid 1 mg IV Q3 hours and Acetaminophen 1000 mg IV Q6 hours PRN Antiemetics as needed for nausea: Zofran 4 mg IV Q4 hours PRN and Ativan 1 mg Q6 hours PRN. General Surgery consulted and appreciate assistance with management. (2) Neoplasm causing mass effect on adjacent structures: Code(s): D49.9 - Neoplasm of unspecified behavior of unspecified site Status: Acute Assessment and Plan: 4.1 centimeter pancreatic mass severely narrows the SMV/splenic confluence causing portal hypertension. General surgery suggest transfer to a tertiary care facility for surgery oncology consultation. He has been accepted at [facility] and is awaiting an available bed. Patient and family updated. 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 Supportive care with IV fluid rehydration and antiemetics. Dr. Esquivel, Hematology/Oncology consulted and appreciate assistance with management. (4) Electrolyte abnormality: Code(s): E87.8 - Other disorders of electrolyte and fluid balance, not elsewhere classified Status: Acute Assessment and Plan: Sodium and chloride are both a bit low on admission. 12/24/21 Sodium 131, potassium 3.4, chloride 95, glucose 121, magnesium 1.8. Change IV fluids to NS with 20 mEQ KCL at 125 mL/hour. (5) Dehydration: Code(s): E86.0 - Dehydration Status: Acute Assessment and Plan: Plan is as detailed above. Renal function stable at this time. Monitor strict I/Os. (6) Hypertension: Qualifiers: Hypertension type: primary hypertension Qualified Code(s): I10 - Essential (primary) hypertension Code(s): I10 - Essential (primary) hypertension Status: Acute Assessment and Plan: Blood pressures were reviewed and they are stable. Monitor closely while NPO. Hold amlodipine, losartan-HCTZ while NPO. (7) Gastroesophageal reflux disease: Code(s): K21.9 - Gastro-esophageal reflux disease without esophagitis Status: Acute Assessment and Plan: Continue IV Protonix. Plan CODE STATUS: DNR Disposition: plan to transfer to higher acuity tertiary center, then likely home. Plan of care reviewed with the patient and spouse. All questions answered to the best of my ability. Time Spent With Patient Time with patient: 15 - 25 minutes Subjective Date/time seen: 12/24/21 07:43 Interval history: He c/o persistent abd pain and nausea that is worse with repositioning. He denies flatus. No chest pain, SOB, or dizziness. He is awaiting an open bed at [facility] for evaluation by surgical oncology. Review of Systems Review of Systems: All systems reviewed & are unremarkable except as noted in HPI and below Exam Narrative: General: Well-developed, nontoxic-appearing adult male sitting up in bed no distress. BMI: 33.8. HEENT: Normocephalic. Atraumatic. Pupils equal and round. EOM intact. Sclera anicteric. NG tube in the right naris draining yellow/green fluid. Dry mucous membranes. Neck: Supple. No JVD. Respiratory: Lungs are clear to auscultation bilaterally. RR regular and unlabored at rest. Cardiovascular: Regular rate and rhythm with S1-S2. No murmurs, gallops or rubs. Gastrointestinal: Abdomen soft, mildly distended with hypoactive b
[2021-12-24 08:00] VITALS: BP 125/69; PULSE 72; RESP 18; TEMP 36.4; O2SAT 97
[2021-12-24] MEDS: PANTOPRAZOLE SODIUM IV 40 MG VIAL IV PUSH (08:20)
[2021-12-24 09:41] LABS: Eosinophils Absolute Auto 0.2 K/mm3 (0-0.3); Eosinophils Percent Auto 9.2 % (0-4.4); Immature Granulocyte Absolute 0.01 K/mm3 (0.00-0.031); Immature Granulocyte Percent A 0.5 % (0-0.5); Immature Platelet Fraction Pct 9.3 % (0.9-11.2); Lymphocytes Absolute Auto 0.77 K/mm3 (0.9-3.2); Lymphocytes Percent Auto 37.4 % (18.3-44.2); Mean Corpuscular HGB Conc 34.4 g/dl (32-36); Mean Corpuscular Hemoglobin 29.1 pg (26-34); Mean Corpuscular Volume 84.7 fl (80-100); Mean Platelet Volume 11.5 fl (7.4-10.4); Monocytes Absolute Auto 0.1 K/mm3 (0.1-0.6); Monocytes Percent Auto 2.9 % (2.6-8.5); Platelet Count Result 90 k/mm3 (150-375); Red Blood Count 3.78 M/mm3 (4.6-6.20); Red Cell Distribution Width 13.1 % (11.5-14.5); White Blood Count 2.1 K/mm3 (4.5-10.0)
[2021-12-24 09:53] LABS: Alanine Aminotransferase 29 U/L (6-50); Albumin Level 3.9 g/dL (3.5-5.1); Alkaline Phosphatase 39 U/L (38-126); Anion Gap 8 mmol/L (8-16); Aspartate Amino Transferase 30 U/L (17-59); Bilirubin,Total 1.9 mg/dL (0.2-1.3); Blood Urea Nitrogen 12 mg/dL (9-20); Calcium 8.8 mg/dL (8.4-10.2); Carbon Dioxide 28 mmol/L (22-30); Chloride 95 mmol/L (98-107); Estimated CRCL calculation 135 ml/min; Estimated Glomerular Filt Rate > 60; Glucose 121 mg/dL (65-110); Magnesium 1.8 mg/dL (1.6-2.3); Potassium 3.4 mmol/L (3.4-5.0); Sodium 131 mmol/L (137-145)
[2021-12-24] MEDS: LACTATED RINGERS 1,000 ML 150 ML IV CONT (09:53)
[2021-12-24] MEDS: KCL 20MEQ/0.9% SOD CHL 1,000 ML 125 ML IV CONT ×2 (11:54→20:37)
[2021-12-24] MEDS: LIDOCAINE 5% PATCH 1 PATCH TRANSDERM (14:42)
[2021-12-24] MEDS: LORazepam INJ (*CRX) 2 MG/ML VIAL 1 MG IV PUSH ×2 (15:09→20:11)
[2021-12-24 16:00] VITALS: BP 128/62; PULSE 74; RESP 18; TEMP 36.3; O2SAT 98
--- NOTE | 2021-12-24 18:16 | PM.CNGS ---
Assessment and Plan Assessment and plan (1) Abdominal pain: Code(s): R10.9 - Unspecified abdominal pain Status: Acute Assessment and Plan: This is the main reason for admission. He received his last chemo 3 days ago. He also has significant abdominal pain and some nausea after his 1st chemo treatment [address] scan last evening showed some dilated small bowel but no specific transition points. Patient had significant amount out his NG after placement. He continues to have some abdominal pain and has not noticed passing much gas. Last bowel movement was also 3 days ago. Recommend continued NG decompression and repeat abdominal films in a.m.. Recommend transfer to a higher level care in view of his pancreatic cancer which appears to be compressing his SMV and SMA to some degree. If he requires exploration for a continuing or worsening small bowel obstruction it may be reasonable to try to do a palliative procedure at the same time to help avoid future complete bowel ischemia. Patient has been accepted in transfer by a surgeon at [facility] in [place]. However, he was admitted here because no beds were available last evening. For now continue NG decompression encourage him to be up walking if he can. There may be some chance that this will resolve with conservative management. Repeat labs and abdominal x-ray a.m. of 12/25. (2) Neoplasm causing mass effect on adjacent structures: Code(s): D49.9 - Neoplasm of unspecified behavior of unspecified site Status: Acute Assessment and Plan: Pancreatic tumor apparently is compressing the vessels near it at the level of the SMA SMV. ( see CT scan report ). (3) Gastroesophageal reflux disease: Code(s): K21.9 - Gastro-esophageal reflux disease without esophagitis Status: Acute Assessment and Plan: On a PPI and anti nausea meds (4) Malignant neoplasm of pancreas metastatic to liver: Code(s): C25.9 - Malignant neoplasm of pancreas, unspecified; C78.7 - Secondary malignant neoplasm of liver and intrahepatic bile duct Status: Acute (5) Anemia: Code(s): D64.9 - Anemia, unspecified Status: Acute (6) HTN (hypertension): Code(s): I10 - Essential (primary) hypertension Status: Acute History of Present Illness Consult details Consult date: 12/24/21 Reason for consult: other ( Abdominal pain, ileus versus partial small-bowel obstruction) Requesting physician: GerAleida lebron PA-C Narrative: This is a very pleasant 66-year-old White male with hypertension, GERD with history of peptic ulcers, and recently discovered pancreatic cancer who presented to the [place] emergency department from home on the evening of 12/23/2021 for evaluation of abdominal pain, nausea, and vomiting. He was diagnosed with pancreas primary adenocarcinoma with metastatic disease to the liver early last month. He had his 2nd chemotherapy treatment between Saturday and Saturday. He seemed to tolerate his initial chemotherapy treatment okay however this 2nd treatment has been much worse. He had something to eat following his initial infusion on Saturday though later that evening he developed nausea which has been unrelenting since that time.? He has not really been able to hold down any food or drink and so to he has not been able to hold down his medications. On he started to have increasing pain in the mid to lower abdomen which he describes as a chronic cramping discomfort though on occasion it is sharp and shooting in nature. He also reports abdominal bloating and distension. As he has not been able to hold down food or liquids he has become increasingly weak. CT of the abdomen and pelvis showed dilated small bowel loops representing ileus versus early obstruction and mass effect from the pancreatic tumor on the SMV/splenic confluence. An NG tube has been inserted and he has had about 200 milliliters of output with perhaps
[2021-12-24 22:00] VITALS: BP 150/81; PULSE 73; RESP 18; TEMP 36.2; O2SAT 100
[2021-12-25] MEDS: HYDROmorphone HCL INJ (*CRX) 1 MG/ML SYR IV PUSH ×5 (02:16→20:57)
[2021-12-25] MEDS: ONDANSETRON INJ 4 MG/2 ML VIAL IV PUSH ×2 (02:17→06:30)
[2021-12-25] MEDS: LORazepam INJ (*CRX) 2 MG/ML VIAL 1 MG IV PUSH ×4 (02:17→20:56)
[2021-12-25 05:21] LABS: Hematocrit 30.4 % (42.0-52.0); Hemoglobin 10.3 g/dL (14.0-18.0); Immature Platelet Fraction Pct 8.9 % (0.9-11.2); Mean Corpuscular HGB Conc 33.9 g/dl (32-36); Mean Corpuscular Hemoglobin 28.8 pg (26-34); Mean Corpuscular Volume 84.9 fl (80-100); Mean Platelet Volume 11.4 fl (7.4-10.4); Platelet Count Result 81 k/mm3 (150-375); Red Blood Count 3.58 M/mm3 (4.6-6.20)
[2021-12-25 05:32] LABS: Alanine Aminotransferase 28 U/L (6-50); Albumin Level 3.7 g/dL (3.5-5.1); Alkaline Phosphatase 39 U/L (38-126); Anion Gap 6 mmol/L (8-16); Aspartate Amino Transferase 26 U/L (17-59); Bilirubin,Total 1.3 mg/dL (0.2-1.3); Blood Urea Nitrogen 14 mg/dL (9-20); Calcium 8.4 mg/dL (8.4-10.2); Carbon Dioxide 28 mmol/L (22-30); Chloride 98 mmol/L (98-107); Estimated CRCL calculation 135 ml/min; Estimated Glomerular Filt Rate > 60; Glucose 103 mg/dL (65-110); Magnesium 1.8 mg/dL (1.6-2.3); Potassium 3.4 mmol/L (3.4-5.0); Sodium 132 mmol/L (137-145)
[2021-12-25 05:34] LABS: White Blood Count 1.9 K/mm3 (4.5-10.0)
[2021-12-25 06:00] VITALS: BP 145/83; PULSE 74; RESP 16; TEMP 36.7; O2SAT 98
[2021-12-25] MEDS: KCL 20MEQ/0.9% SOD CHL 1,000 ML 125 ML IV CONT (07:01)
[2021-12-25 08:00] VITALS: BP 130/70; PULSE 73; RESP 16; TEMP 36.3; O2SAT 98
--- NOTE | 2021-12-25 08:28 | PM.IMPN ---
Progress Note: A&P Assessment and Plan (1) Small bowel obstruction: Code(s): K56.609 - Unspecified intestinal obstruction, unspecified as to partial versus complete obstruction Status: Acute Assessment and Plan: CT of the abdomen/pelvis shows ileus versus early small-bowel obstruction. NG tube to low, intermittent suction for decompression. NPO Analgesics as needed for pain: PRN Diluadid 1 mg IV Q3 hours and Acetaminophen 1000 mg IV Q6 hours PRN Antiemetics as needed for nausea: Zofran 4 mg IV Q4 hours PRN and Ativan 1 mg Q6 hours PRN. General Surgery consulted and appreciate assistance with management. 12/25/21 continue current management. KUB in am. (2) Neoplasm causing mass effect on adjacent structures: Code(s): D49.9 - Neoplasm of unspecified behavior of unspecified site Status: Acute Assessment and Plan: 4.1 centimeter pancreatic mass severely narrows the SMV/splenic confluence causing portal hypertension. General surgery suggest transfer to a tertiary care facility for surgery oncology consultation. He has been accepted at [facility] and is awaiting an available bed. Patient and family updated. 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 Supportive care with IV fluid rehydration and antiemetics. Dr. Esquivel, Hematology/Oncology consulted and appreciate assistance with management. WBC 1.9, ANC>500. last chemo treatment on 12/20/21. Monitor for linda. Platelets 81. H/H 10.3/30.4 No acute bleeding. (4) Electrolyte abnormality: Code(s): E87.8 - Other disorders of electrolyte and fluid balance, not elsewhere classified Status: Acute Assessment and Plan: Sodium and chloride are both a bit low on admission. 12/24/21 Sodium 131, potassium 3.4, chloride 95, glucose 121, magnesium 1.8. Change IV fluids to NS with 20 mEQ KCL at 125 mL/hour. 12/25/21 sodium 132, potassium 3.4, chloride 98, TCO2 28, anion gap 6, BUN 14, creatinine 0.7, glucose 103, calcium 8.4. Change IV fluids to D5NS with 40 mEQ KCl at 125 mL/hour. Monitor electrolytes with large gastric volume output. (5) Dehydration: Code(s): E86.0 - Dehydration Status: Acute Assessment and Plan: Plan is as detailed above. Renal function stable at this time. Monitor strict I/Os. (6) Hypertension: Qualifiers: Hypertension type: primary hypertension Qualified Code(s): I10 - Essential (primary) hypertension Code(s): I10 - Essential (primary) hypertension Status: Acute Assessment and Plan: Blood pressures were reviewed and they are stable. Monitor closely while NPO. Hold amlodipine, losartan-HCTZ while NPO. Stable. (7) Gastroesophageal reflux disease: Code(s): K21.9 - Gastro-esophageal reflux disease without esophagitis Status: Acute Assessment and Plan: Continue IV Protonix. Plan CODE STATUS: DNR Disposition: plan to transfer to higher acuity tertiary center, then likely home. Time Spent With Patient Time with patient: 15 - 25 minutes Subjective Date/time seen: 12/25/21 08:28 He has improved nausea with Ativan and Zofran IV. Dilaudid is helping with his pain. No flatus at this time. NG tube with ~700 mL output overnight. Review of Systems Review of Systems: All systems reviewed & are unremarkable except as noted in HPI and below Exam Narrative: General: nontoxic-appearing. sitting up in bed no distress. HEENT: Normocephalic. Pupils equal and round. Sclera anicteric. NG tube in the right naris draining yellow/green fluid. mucous membranes moist. Neck: Supple. No JVD. Respiratory: Lungs are clear to auscultation bilaterally. RR regular and unlabored at
[2021-12-25] MEDS: KCL 40 MEQ/D5 1/2NS 1,000 ML 125 ML IV CONT ×2 (09:18→18:31)
[2021-12-25] MEDS: PANTOPRAZOLE SODIUM IV 40 MG VIAL IV PUSH (09:33)
[2021-12-25] MEDS: LIDOCAINE 5% PATCH 1 PATCH TRANSDERM (09:33)
[2021-12-25 14:00] VITALS: BP 121/64; PULSE 79; RESP 16; TEMP 36.8; O2SAT 98
--- NOTE | 2021-12-25 14:01 | PM.PNGS ---
Progress Note: A&P Assessment and Plan (1) Abdominal pain: Code(s): R10.9 - Unspecified abdominal pain Status: Acute Assessment and Plan: CT scan showed dilated small bowel with no transition point. He has had a fairly high NG output and still 700 cc out overnight. Plain films show a normal bowel gas pattern, although he is still not pass much gas or having any bowel movements. We would recommend transfer to a tertiary care facility in view of his pancreatic cancer, which appears to be compressing his SMV and SMA to some degree. If he required exploration for a continuing or worsening small bowel obstruction it may be reasonable to try doing a palliative procedure to help avoid future complete bowel ischemia. He has been accepted by a surgeon at [facility] in [place], awaiting bed placement. For now, we will continue NG tube, NPO, and IV fluids Repeat obstructive series tomorrow morning. There is no NG evident on this morning's obstructive series, and apparently his NG tube came through the tape and was accidentally withdrawn some, but after the x-rays his nurse advanced the NG back to the previous location and it is functioning well now. (2) Neoplasm causing mass effect on adjacent structures: Code(s): D49.9 - Neoplasm of unspecified behavior of unspecified site Status: Acute Assessment and Plan: Pancreatic tumor apparently is compressing the vessels near it at the level of the SMA and SMV. (3) Gastroesophageal reflux disease: Code(s): K21.9 - Gastro-esophageal reflux disease without esophagitis Status: Acute (4) Malignant neoplasm of pancreas metastatic to liver: Code(s): C25.9 - Malignant neoplasm of pancreas, unspecified; C78.7 - Secondary malignant neoplasm of liver and intrahepatic bile duct Status: Acute (5) Anemia: Code(s): D64.9 - Anemia, unspecified Status: Acute (6) HTN (hypertension): Code(s): I10 - Essential (primary) hypertension Status: Acute Plan I have discussed the patient's case and plan of care with Dr. Nunez. Subjective Subjective Date/Time Seen: 12/25/21 14:01 Patient reports: no new complaints, no flatus and no bowel movement Interval history: Patient seen and examined. His abdominal pain and bloating is slightly better today. Denies flatus or BM. He ambulated in the halls once yesterday and was about to try walking today. No other complaints at this time. Nursing has not heard today from Kathy regarding his transfer. Review of Systems Review of Systems: All systems reviewed & are unremarkable except as noted in HPI and below Exam Const: General: comfortable, no acute distress and awake Orientation/consciousness: patient oriented x3 GI: Inspection: non-distended GI Palp: Yes Soft to palpation, No Tenderness to palpation present (GI), No Guarding due to palpation present (GI) and No Rebound tenderness present Auscultation: Hypoactive bowel sounds present (very hypoactive) Objective Data Vital Signs Vital Signs: Vital Signs - 24 hr 12/24/21 16:00 12/24/21 22:00 12/24/21 20:20 Temperature 97.4 F L 97.2 F L Pulse Rate 74 73 Respiratory Rate 18 18 Blood Pressure 128/62 150/81 H Pulse Oximetry 98 100 Oxygen Delivery Room Air 12/25/21 06:00 12/25/21 08:00 Temperature 98.1 F 97.4 F L Pulse Rate 74 73 Respiratory Rate 16 16 Blood Pressure 145/83 H 130/70 Pulse Oximetry 98 98 Oxygen Delivery Intake/Output Intake/Output: Intake & Output 12/22/21 12/23/21 12/24/21 12/25/21 23:59 23:59 23:59 23:59 Intake Total 3000 2100 1240 Output Total 3325 900 Balance 3000 -1225 340 Meds/Results Medications: Active Medications Generic Name Dose Route Start Last Admin Trade Name Freq PRN Reason Stop Dose Admin Heparin Sodium (Beef Lung) 50 units 12/26/21 09:00 Heparin Flush 50 Units/5 Ml Syringe IV PUSH [facility] Heparin Sodium (Beef Lung) 50 units 12/25/21 09:07
--- NOTE | 2021-12-25 14:29 | PCDIET ---
Brief nutrition note: Screened for MST 4; weight loss and poor intake secondary to metastatic pancreatic cancer. Patient has been accepted to [facility] for oncology consult and awaiting bed. NPO for small bowel obstruction now. Will continue to follow and if not transferred, will follow up in 3 days for full assessment.
[2021-12-25] MEDS: BISACODYL 10 MG SUPPOSITORY RECTAL (18:37)
--- NOTE | 2021-12-25 18:46 | PDONCCN ---
HPI - Date of Consult Date/Time: 12/25/21 18:46 Requesting Physician: Kayla Cali MD Primary Care Provider: Jo Kinney MD - Consult Narrative Reason for consult: Metastatic pancreatic cancer Narrative: Jason Krishnamurthy is a 66 year old male with diagnosis of metastatic pancreatic cancer currently on chemotherapy with FOLFIRINOX regimen. He received cycle 2. On December 20. He came into the hospital with nausea vomiting along with abdominal discomfort. He has been feeling tired and fatigue and has lost significant amount of weight. He has last bowel movement almost a week ago. CT abdomen and pelvis showed dilated small bowel representing ileus versus very early obstruction and mass effect from the pancreatic tumor on the SMV/splenic confluence. NG tube was inserted. Patient is feeling slightly better. Review of Systems - Review of Systems All systems reviewed & are unremarkable except as noted in HPI and bel - Neurologic Reports hearing normal, Denies abnormal speech, Denies confusion PMFSH Medical History: Medical History (Last Reviewed 12/24/21 @ 18:19 by Juan Nunez MD) Anemia Gastroesophageal reflux disease Hyperlipidemia Hypertension Pancreatic cancer metastasized to liver Surgical History: Surgical History (Last Reviewed 12/24/21 @ 18:19 by Juan Nunez MD) History of repair of hiatal hernia History of spinal fusion Family History: Family History (Last Reviewed 12/24/21 @ 18:19 by Juan Nunez MD) Father Heart disease Mother Heart disease - Social History Social History: Social History (Last Reviewed 12/24/21 @ 18:19 by Juan Nunez MD) Others: Spiritual care concerns: No Exam - Vital Signs Vital Signs - 24 hr 12/24/21 22:00 12/24/21 20:20 12/25/21 06:00 Temperature 36.2 C L 36.7 C Pulse Rate 73 74 Respiratory Rate 18 16 Blood Pressure 150/81 H 145/83 H Pulse Oximetry 100 98 Oxygen Delivery Room Air 12/25/21 08:00 12/25/21 14:00 Temperature 36.3 C L 36.8 C Pulse Rate 73 79 Respiratory Rate 16 16 Blood Pressure 130/70 121/64 Pulse Oximetry 98 98 Oxygen Delivery - Exam HEENT: EOMI, PERRLA, mucous membranes moist and pink, nares patent, sclera clear Neck: supple. No: JVD Lungs: clear to auscultation, normal air movement Heart: no murmurs, gallops, or rubs, regular rhythm, regular rate Abdomen: abdomen firm, abnormal bowel sounds, distended Extremities: normal pulses Integumentary: no abnormalities Psychological: mental status NL, mood NL (Bowel sounds not heard) - Lab Results Laboratory Last Values WBC 1.9 K/mm3 (4.5-10.0) L 12/25/21 05:09 RBC 3.58 M/mm3 (4.6-6.20) L 12/25/21 05:09 Hgb 10.3 g/dL (14.0-18.0) L 12/25/21 05:09 Hct 30.4 % (42.0-52.0) L 12/25/21 05:09 MCV 84.9 fl (80-100) 12/25/21 05:09 MCH 28.8 pg (26-34) 12/25/21 05:09 MCHC 33.9 g/dl (32-36) 12/25/21 05:09 RDW 13.0 % (11.5-14.5) 12/25/21 05:09 Plt Count 81 k/mm3 (150-375) L 12/25/21 05:09 MPV 11.4 fl (7.4-10.4) H 12/25/21 05:09 Immature Gran % (Auto) 0.5 % (0-0.5) 12/24/21 09:00 Neut % (Auto) 49.0 % (45.5-73.1) 12/24/21 09:00 Lymph % (Auto) 37.4 % (18.3-44.2) 12/24/21 09:00 [place] % (Auto) 2.9 % (2.6-8.5) 12/24/21 09:00 Eos % (Auto) 9.2 % (0-4.4) H 12/24/21 09:00 Baso % (Auto) 1.0 % (0.2-1.2) 12/24/21 09:00 Lymph # (Auto) 0.77 K/mm3 (0.9-3.2) L 12/24/21 09:00 [place] # (Auto) 0.1 K/mm3 (0.1-0.6) 12/24/21 09:00 Eos # (Auto) 0.2 K/mm3 (0-0.3) 12/24/21 09:00 Baso # (Auto) 0.0 K/mm3 (0.0-0.1) 12/24/21 09:00 Abs Immat Gran (auto) 0.01 K/mm3 (0.00-0.031) 12/24/21 09:00 Absolute Neuts (auto) 1.0 K/mm3 (1.3-6.7) L 12/24/21 09:00 Absolute Nucleated RBC 0.0 K/mm3 (0.0-0.012) 12/24/21 09:00 Nucleated RBC % 0.0 % (0.0-0.2) 12/24/21 09:00 % Immature Plt Fraction
--- NOTE | 2021-12-25 20:59 | PM.TDS ---
Transfer Discharge Sum: Prov Provider Date of admission: 12/23/21 19:48 Primary care physician: Jo Kinney MD Admitting clinician: Kayla Cali MD Consults: 12/23/21 Care Coordination Consult Routine Comment: Reason for Consult:: Advanced Directives 12/23/21 19:51 Consult to Physician Routine Comment: Consulting Provider: Ortega Esquivel call worker/MD group to consult: Reason for consultation: Pancreatic cancer with liver metastasis Has provider been notified: Yes 12/23/21 19:52 Consult to Physician Routine Comment: Consulting Provider: Juan Nunez Reason for consultation: Small bowel obstruction Has provider been notified: Yes Attending physician on discharge: Kayla Cali Discharging clinician: Elizabeth Zuñiga Anticipated date of transfer: 12/25/21 Receiving physician/facility: [facility], Dr. An for surgical-oncology evaluation. 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 NG tube to low, intermittent suction for decompression. NPO Analgesics as needed for pain: PRN Diluadid 1 mg IV Q3 hours and Acetaminophen 1000 mg IV Q6 hours PRN Antiemetics as needed for nausea: Zofran 4 mg IV Q4 hours PRN and Ativan 1 mg Q6 hours PRN. General Surgery consulted and appreciate assistance with management. 12/25/21 continue current management. Serial KUB trended. (2) Neoplasm causing mass effect on adjacent structures: Code(s): D49.9 - Neoplasm of unspecified behavior of unspecified site Status: Acute Assessment and Plan: 4.1 centimeter pancreatic mass severely narrows the SMV/splenic confluence causing portal hypertension. General surgery suggest transfer to a tertiary care facility for surgery oncology consultation. He has been accepted at [facility] and is awaiting an available bed. Patient and family aware. 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 Supportive care with IV fluid rehydration and antiemetics. Dr. Esquivel, Hematology/Oncology consulted and appreciate assistance with management. WBC 1.9, ANC>500. last chemo treatment on 12/20/21. Monitor for linda. Platelets 81. H/H 10.3/30.4 No acute bleeding. (4) Electrolyte abnormality: Code(s): E87.8 - Other disorders of electrolyte and fluid balance, not elsewhere classified Status: Acute Assessment and Plan: Sodium and chloride are both a bit low on admission. 12/24/21 Sodium 131, potassium 3.4, chloride 95, glucose 121, magnesium 1.8. Change IV fluids to NS with 20 mEQ KCL at 125 mL/hour. 12/25/21 sodium 132, potassium 3.4, chloride 98, TCO2 28, anion gap 6, BUN 14, creatinine 0.7, glucose 103, calcium 8.4. Change IV fluids to D5NS with 40 mEQ KCl at 125 mL/hour. Monitor electrolytes with large gastric volume output. (5) Dehydration: Code(s): E86.0 - Dehydration Status: Acute Assessment and Plan: Plan is as detailed above. Renal function stable at this time. Monitor strict I/Os. (6) Hypertension: Qualifiers: Hypertension type: primary hypertension Qualified Code(s): I10 - Essential (primary) hypertension Code(s): I10 - Essential (primary) hypertension Stat
[2021-12-25 22:00] VITALS: BP 129/77; PULSE 83; RESP 16; TEMP 36.7; O2SAT 98
[2021-12-25] MEDS: CENTRAL LINE FLUSH 10 ML IV PUSH (23:30)
== END 2021-12-25 23:29 | disposition short-term general hospital (02) | DRG 389 ==
LOC: ANHED 20:23 → ANH3MEDSUR 20:25
PROVIDERS: Emergency Medicine; Nurse Practitioner Family; Admitting Provider Family Medicine; Emergency Provider Emergency Medicine; PCP Internal Medicine; Visit Provider Nurse Practitioner
DX: K56.699 Other intestinal obstruction unspecified as to partial versus complete obstruction (principal); C25.9 Malignant neoplasm of pancreas, unspecified; K76.6 Portal hypertension; C78.7 Secondary malignant neoplasm of liver and intrahepatic bile duct; E87.1 Hypo-osmolality and hyponatremia; K56.7 Ileus, unspecified; E87.8 Other disorders of electrolyte and fluid balance, not elsewhere classified; E87.6 Hypokalemia; E86.0 Dehydration; E78.5 Hyperlipidemia, unspecified; E66.9 Obesity, unspecified; D63.0 Anemia in neoplastic disease; I10 Essential (primary) hypertension; K21.9 Gastro-esophageal reflux disease without esophagitis; Z66 Do not resuscitate; Z87.11 Personal history of peptic ulcer disease; Z92.21 Personal history of antineoplastic chemotherapy; Z68.33 Body mass index [BMI] 33.0-33.9, adult; Z98.1 Arthrodesis status
CPT/HCPCS: 36415; 71045; 74019; 74177; 80053; 81001; 83690; 83735; 85025; 85027; 85055; 96361; 96374; 96375; 96376; 99285; A9270; C9113; J0131; J1170; J2060; J2405; J3480; J7030; J7120; Q9967